=== PATIENT | female | born 1930 | race Caucasian/White ===

== ENCOUNTER 2016-07-12 15:42 | Inpatient (IN) | payer MEDICARE, OTHER ==
[~2016-07-12] VITALS: Ht 167.6 cm; Wt 61.1 kg
[2016-07-12] MEDS ORDERED: LEVO75TA4 PO (15:50)
[2016-07-12] MEDS ORDERED: ASPI-973 PO (15:50)
[2016-07-12] MEDS ORDERED: LOSA50TA37 PO (15:50)
[2016-07-12] MEDS ORDERED: CARV25TA2 PO (15:50)
[2016-07-12] MEDS ORDERED: MULT-1073 PO (15:50)
[2016-07-12 15:51] VITALS: BP 135/45; PULSE 88; RESP 26; O2SAT 94
[2016-07-12] MEDS ORDERED: Albuterol-Ipratropium 3 mL Inhalation Solution NEB ONE (16:00)
--- NOTE | 2016-07-12 16:07 | ED.REPORT ---
HPI-General Illness Date of Service Jul 12, 2016 ED Provider: Oliver Wright DO Sara Huddleston is an 86 year old woman with a PMH of Asthma, CHF with previously diagnosed dilated cardiomyopathy, BL cataracts, HTN, and hypothyroidism who presents with a 1 day history of increasing SOB. She states this feeling is similar to asthma exacerbations she has had in the past, she has never an steroid burst or taper as far as she is aware. She further endorses a recent cough productive of sputum which she has not examined for color or odor. She further expresses concern for new onset BL LE edema. She denies chest pain, ORTEGA, pain with deep inspiration, recent immobility, pain in her legs or calves, or palpitations. Nursing Notes Stated Complaint: DIFFICULTY BREATHING Chief Complaint: Respiratory Complaints Nursing Notes Reviewed: Yes Allergies: Coded Allergies: codeine (Verified Adverse Reaction, Severe, Nausea,Vomiting, 07/12/16) Scheduled Aspirin (Aspirin) 81 Mg Tablet 81 MG PO DAILY Carvedilol (Carvedilol) 25 Mg Tablet 25 MG PO BID Levothyroxine (Levothyroxine) 75 Mcg Tablet 75 MCG PO QAM Losartan Potassium (Losartan Potassium) 50 Mg Tablet 50 MG PO DAILY Mometasone/Formoterol (Dulera 100 Mcg/5 Mcg Inhaler) 13 Gm Hfa.aer.ad 2 PUFFS IH BID Multivits-Min/FA/Lycopene/Lut (Centrum Silver Tablet) 1 Each Tablet 1 EACH PO DAILY Scheduled PRN Fluticasone Propionate (Flonase Allergy Relief) 50 Mcg/Actuation [place].susp 1-2 ML NS DAILY PRN PRN RHINITIS General Time Seen by MD: 15:50 Chief Complaint Breathing problem Hx Obtained From: Patient Sudden in Onset?: No Onset Occurred: 2 days ago Symptom Duration: Since onset Severity: Current: No pain currently Severity: Maximum: No pain Recent Healthcare: No recent doctor visit Similar Sx Previous: Yes Past Medical History Past Medical History Hypothyroidism Reports: Asthma, Congestive heart failure, Hypertension Review of Systems Full Review of Systems Respiratory: Reports: Prod cough, yellow, Shortness of breath, Wheezing Cardiovascular: Reports: Edema Complete sys rev & neg: except as marked. Physical Exam Gen: A/O x3 pleasant cooperative ago woman appearing younger than stated age, mild acute distress secondary to SOB Neck: Supple, Full ROM, no JVD HEENT: PERRL, EOMI, mucous membranes slightly dry, no scleral icterus, no conjunctival pallor CV: RRR, soft systolic murmur best heard at right sternal border, mild diastolic murmur best heard in the axilla Resp: Diffuse expiratory wheezing which does not clear with cough, No rales or rhonchi Extr: Mild BL non-pitting LE edema, no cyanosis or clubbing Neuro: CN 2-12 grossly intact, no focal neurologic deficit. Vital Signs Vital Signs Date Time Temp Pulse Resp B/P Pulse Ox O2 Delivery O2 Flow Rate FiO2 07/12/16 17:43 82 24 136/48 92 Nasal Cannula 2 07/12/16 16:18 75 20 98 Room Air 07/12/16 15:51 37.0 88 26 135/45 94 Room Air Initial VS: Reviewed, Vital signs abnormal (Mild Tachypnea and Hypotension) Interpretation & Diagnostics Lab Results Interpretation Result Diagram: 07/12/16 1615 07/12/16 1615 Test 07/12/16 16:15 White Blood Count 5.5th/mm3 (3.8-10.1) Red Blood Count 3.86mil/mm3 (3.90-5.20) Hemoglobin 11.7g/dL (12.0-15.6) Hematocrit 36.4% (35.0-46.0) Mean Corpuscular Volume 94.3fL (81-100) Mean Corpuscular Hemoglobin 30.3pg (27.0-35.0) Mean Corpuscular Hemoglobin Concent 32.1% (32.0-37.0) Red Cell Distribution Width 13.6% (12.3-15.4) Platelet Count 249bil/L (150-400) Neutrophils (%) (Auto) 73.7% (40-74) Lymphocytes (%) (Auto) 14.7% (14-46) Monocytes (%) (Auto) 10.0% (4-12) Eosinophils (%) (Auto) 1.1% (0-5) Basophils (%) (Auto) 0.5% (0-3) Sodium Level 125mEq/L (134-144) Potassium Level 4.6mEq/L (3.5-5.2) Chloride Level 90mEq/L (97-108) Carbon Dioxide Level 22mmol/L (18-29) Blood Urea Nitrogen 12mg/dL (8-27) Creatinine 0.79mg/dL (0.57-1.00) Estimat Glomerular Filtration Rate 99mL/min (>59) Glucose Level 105mg/dL (60-99) Calcium Level 8.5mg/dL (8.5-10.1) Total Bilirubin 0.4mg/dL (0.0-1.2) Aspartate Amino Transf (AST/SGOT) 30U/L (0-50) Alanine Aminotransferase (ALT/SGPT) 14U/L (0-32) Alkaline Phosphatase 62U/L (25-165) Troponin T < 0.010ug/L (0.0-0.011) Pro-B-Type Natriuretic Peptide 1633pg/mL (0-738) Total Protein 8.0g/dL (6.4-8.4) Albumin 3.4g/dL (3.4-5.0) ECG Interpretation Interpreted by: ED physician Normal ECG Interpretation: No acute ischemic changes, Normal intervals, No change from prior ECGs, Adequate tracing Abnormal Rate: Rate (80) Rhythm / Conduction: Ectopic beats - PVC's, RBBB - complete Re-Eval/Medical Decision Med Decision/Clinical Course This is a patient with multiple possibly overlapping etiologies for her SOB whose last ECHO in November 2013 indicated mildly dilated CHF with EF 35-45% and multi-valvular pathology. Laboratory exam, clinical evaluation, and imaging consistent with acute on chronic CHF exacerbation. The patient is also acute hyponatremic and hypochloremic, so she was started on NS @ 100mls/hr for electrolyte replacement and concurrent Lasix to encourage diuresis of free water to improve peripheral and central edema. Given overall clinical picture and concurrent co-morbid conditions, we believe the patient would benefit from further cardiovascular evaluation Counseled Regarding: Diagnosis, Lab results, Need for follow-up, Need for admission Discharge & Departure Shift Change Sign-Out Patient Care Transferred: No Discussed Complaint(s): Yes Laboratory Evaluation: Lab evaluation discussed Imaging Studies: Imaging discussed Response to Therapy: Improved Primary Impression: Asthma Asthma severity: moderate persistent Asthma complication type: with acute exacerbation Qualified Code: J45.41 - Moderate persistent asthma with (acute) exacerbation Additional Impression: CHF (congestive heart failure) Congestive heart failure type: unspecified congestive heart failure type Congestive heart failure chronicity: unspecified congestive heart failure chronicity Qualified Code: I50.9 - Heart failure, unspecified Disposition: ADMITTED TO HOSPITAL Discharge Condition All VS Reviewed: Yes Condition: Stable Referrals: Quique Caruso MD (PCP) CARDIOLOGY,REHAN REYNOSO (Family) Attending Statement The patient was seen and examined together with Dr. Ramon on 07/12/16 and I have added additional information to the note above. copies to: Quique Caruso MD, David E DO Jul 12, 2016 16:07 Oliver Wright DO Jul 12, 2016 17:49
[2016-07-12] MEDS ORDERED: Albuterol 2.5 mg/3 mL Inhalation Solution NEB ONE (16:10)
[2016-07-12] MEDS ORDERED: MethylprednisoLONE Sodium Succinate 40 mg/mL Inj IVPUSH ONE (16:10)
[2016-07-12 16:18] VITALS: PULSE 75; RESP 20; O2SAT 98
[2016-07-12 16:21] LABS: BASOPHILS % (AUTO) 0.5 % (0-3); EOSINOPHILS % (AUTO) 1.1 % (0-5); Mean Corpuscular Hemoglobin 30.3 pg (27.0-35.0); Mean Corpuscular Volume 94.3 fL (81-100); NEUTROPHILS % (AUTO) 73.7 % (40-74); Platelet Count 249 bil/L (150-400)
[2016-07-12 16:53] LABS: TROPONIN T < 0.010 ug/L (0.0-0.011)
[2016-07-12] MEDS ORDERED: Furosemide 10 mg/mL 4 mL Inj IVPUSH ONE (17:20)
[2016-07-12] MEDS ORDERED: 0.9% Sodium Chloride 1,000 ML IV SCH ×2 (17:20→17:38)
[2016-07-12] MEDS ORDERED: MOME13HF2 IH (17:32)
[2016-07-12] MEDS ORDERED: FLUT9.9S NS (17:32)
[2016-07-12] MEDS ORDERED: Alum-Mag Hydrox-Simeth 30 mL Suspension PO PRN ×2 (17:40→17:45)
[2016-07-12] MEDS ORDERED: Ondansetron 2 mg/mL 2 mL Inj IVPUSH PRN ×2 (17:40→17:45)
[2016-07-12 17:43] VITALS: BP 136/48; PULSE 82; RESP 24; O2SAT 92
[2016-07-12] MEDS ORDERED: Fluticasone 0.05% 15 Spray/2 Gm 16 Gm Nasal Spray NASAL PRN (17:50)
--- NOTE | 2016-07-12 18:00 | PCM.HPMED ---
Subjective Date of Service Jul 12, 2016 Primary Provider: Admitting Physician: Primary Care Physician: Quique Caruso MD Attending Physician: History of Present Illness: cc: Short of breath HISTORY was OBTAINED FROM PATIENT / [employer] NOTES History of present illness 86-year-old female presents with 2-3 days of shortness of breath, productive cough, with wheezing. New onset bilateral lower extremity edema for 1 day. No chest pressure, not immobile, palpitations. poor appetite. drinks at least4+ glasses of tea/coffee daily. home inhalers have not been helpful. no orthopnea. no sore throat. no body aches. She visited family w/ pneumonia who is hospitalized. In the ER vital signs stable on room air, DuoNeb's, normal saline, Lasix, Solu- Medrol Review of Systems - none of the following - F/C/ DIAZ / lightheaded / dizziness / acid reflux / n/v/diarrhea / bleeding/bruising / change in voiding / yeast infections / rash ambulates sneezing fits FAMILY HX CAD ovarian cancer SOCIAL HX quit smoking in her 50s MEDICATIONS Aspirin (Aspirin) 81 Mg Tablet 81 MG PO DAILY Carvedilol (Carvedilol) 25 Mg Tablet 25 MG PO BID Levothyroxine (Levothyroxine) 75 Mcg Tablet 75 MCG PO QAM Losartan Potassium (Losartan Potassium) 50 Mg Tablet 50 MG PO DAILY Mometasone/Formoterol (Dulera 100 Mcg/5 Mcg Inhaler) 13 Gm Hfa.aer.ad 2 PUFFS IH BID Multivits-Min/FA/Lycopene/Lut (Centrum Silver Tablet) 1 Each Tablet 1 EACH PO DAILY Scheduled PRN Fluticasone Propionate (Flonase Allergy Relief) 50 Mcg/Actuation [place].susp 1-2 ML NS DAILY PRN PRN RHINITIS Past Medical/Surgical HX Asthma BL cataracts, hypothyroidism CAD / [place] in her 50s medically managed / hypertension / dilated cardiomyopathy, echo 2013 Mildly dilated left ventricle EF45% Apical inferior wall and apical lateral wall are moderate hypokinesis. Mildly dilated right ventricle. Severely dilated left atrium. Mild aortic sclerosis. Mild aortic regurgitation. Mild mitral annular calcification. Moderate mitral regurgitation, eccentrically directed posteriorly. Small aneurysm of the abdominal aorta 3.7 cm X 3.7 cm. Comparison is made with the echocardiogram of 11/15/11, there has been no significant change. 2014 normal Treadmill stress RBBB, performed for dyspnea Allergies Coded Allergies: codeine (Verified Adverse Reaction, Severe, Nausea,Vomiting, 07/12/16) PMH Social History Hx Alcohol Use: No Hx Substance Use: No Exam Vital Signs Vital Sign - Last Date Time Temp Pulse Resp B/P Pulse Ox O2 Delivery O2 Flow Rate FiO2 07/12/16 17:43 82 24 136/48 92 Nasal Cannula 2 07/12/16 15:51 37.0 Lab and Diagnostics Labs Exam on admission 2-3L NC NAD A and O x 3 mood affect WNL NC/AT EOMI PERRL / sunglasses/ no pharyngeal lesions/ no oral lesions / hearing intact Supple neck bilateral diminished CTAB equal chest rise / no accessory muscle use / speaks in full sentences / NO wheezing currently RRR S1 S2 / no mrg / 2+ radial pulses Soft nt nd + BS no hepatosplenomegaly 1+ edema bilateral dependent distal legs and ankles // no cyanosis no ecchymosis of lower extremities No rash / no jaundice JOHNSON symmetrical facies EKG RBBB LAFB, PVC, sinus rhythm 80 QTc Prilosec Trop pending BNP 1633 UA pending LFT normal Imaging CXR PROCEDURE: X-RAY CHEST, TWO VIEWS ([id number]) INDICATIONS: SOB TECHNIQUE: 2 views of the chest were acquired. COMPARISON: [facility], , CHEST 1VW (PORTABLE), 09/09/2010, 0:41. FINDINGS: Surgical changes and devices: None. Lungs and pleura: There is mild increased pulmonary vascularity. There is slight appearance of streaky opacities within the right base. Mediastinum: Mediastinal contours are normal. Heart size is normal. Bones and chest wall: No suspicious bony abnormalities. Soft tissues appear unremarkable. IMPRESSION: Increased pulmonary vascularity suggestive of edema. Streaky opacities are present in the right base. This could be retail service representative of evolving pneumonia, focal edema and/or atelectasis. Result Diagram: 07/12/16 1615 07/12/16 1615 Assessment & Plan Active issues and reason for admission Respiratory failure due to Acute systolic CHF, contributory asthma, afebrile w/ o leukocytosis -- DuoNeb, prednisone, hold home inhaled steroid, pending sputum cx -- Pending influenza/sputum culture/urine strep/procalcitonin, hold antibiotics for now since well appearing, though sick contact was hospitalized for pna -- diuresis, Lasix 40 daily, I and O, daily weight, no urine had been collected prior to Lasix in ER, s/p 400cc UOP post ER -- Continue Coreg, -- Pending echo Hyponatremia, likely due to hypovolemia -- Last sodium 136 in 2007 -- Hold losartan while diuresing -- Lasix, serial sodium, fluid restriction 1.5 L -- UA pending Chronic issues known prior to admission, present on admission Asthma moderate persistent BL cataracts, hypothyroidism 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 Mild aortic regurgitation. Moderate mitral regurgitation. Small AAA 3.7 cm X 3.7 cm, unchanged from 2011 to 2013 2014 normal Treadmill stress RBBB, performed for dyspnea Diet cardiac DVT prophylaxis lovenox scd ambulate Code full Disposition inpatient Assessment and plan were discussed with patient August Bianchi MD Jul 12, 2016 18:00 Result Diagram: 07/12/16 1615 07/12/16 1615 August Bianchi MD Jul 12, 2016 18:00
--- NOTE | 2016-07-12 18:01 | DRSVH ---
PROCEDURE: X-RAY CHEST, TWO VIEWS ([id number]) INDICATIONS: SOB TECHNIQUE: 2 views of the chest were acquired. COMPARISON: [facility], , CHEST 1VW (PORTABLE), 09/09/2010, 0:41. FINDINGS: Surgical changes and devices: None. Lungs and pleura: There is mild increased pulmonary vascularity. There is slight appearance of streak y opacities within the right base. Mediastinum: Mediastinal contours are normal. Heart size is normal. Bones and chest wall: No suspicious bony abnormalities. Soft tissues appear unremarkable. IMPRESSION: Increased pulmonary vascularity suggestive of edema. Streaky opacities are present in the right base. This could be exhibit display representative of evolving pneumonia, focal edema and/or atelectasis. Dictated by: Hanna Soares M.D. on 07/12/2016 at 17:59 Approved by: Hanna Soares M.D. on 07/12/2016 at 18:00
[2016-07-12 19:05] VITALS: BP 136/48; PULSE 82; RESP 24; O2SAT 92
[2016-07-12 19:10] LABS: APPEARANCE,URINE CLEAR (CLEAR,HAZY); COLOR,URINE YELLOW (YELLOW); OCCULT BLOOD,URINE TRACE (NEGATIVE); PH,URINE 5.5 (5.0-8.0); UROBILINOGEN,URINE NORMAL (NORMAL)
[2016-07-12 19:41] VITALS: BP 123/65; PULSE 85; RESP 18; O2SAT 94
[2016-07-12 20:29] VITALS: PULSE 90
[2016-07-12] MEDS: Albuterol-Ipratropium 3 mL Inhalation Solution NEB SCH (20:30)
[2016-07-12] MEDS: Fluticasone-Salmeterol 100-50 Inhaler INHALATION SCH (20:35)
[2016-07-12 20:52] LABS: INR 0.98 ratio
[2016-07-12 21:10] LABS: TROPONIN T < 0.010 ug/L (0.0-0.011)
[2016-07-12 21:19] LABS: Magnesium 1.7 mg/dL (1.6-2.6)
--- NOTE | 2016-07-12 22:00 | NUR ---
ADMIT NOTE Pt arrived to [facility] [place] [facility] 3021 approx 193. VS obtained. Pt on 3L. Pt states she feels more comfortable and less dyspneic at this time. Pts IV saline locked per MD orders. Pt placed on remote telemetry, crane service technician notified. Pt voided, urine sample sent to lab. Influenza swab obtained, pt tested positive for Influenza B. notified, rec'd orders and administered 1st dose of tamiflu. Specimen cup at bedside, pt aware that sputum sample is needed. Pt denies any pain. Evening medications administered. Continue to monitor. Pt placed on droplet precautions. Call light in reach. Intentional rounding.
[2016-07-13] VITALS (9 sets, daily range): BP systolic 93–139; BP diastolic 54–65; PULSE 72–85; RESP 18–24; O2SAT 93–95
[2016-07-13] MEDS: Sodium Chloride LOK Flush 10 mL Syringe IVFLUSH SCH ×3 (01:10→16:30)
[2016-07-13] MEDS: Albuterol-Ipratropium 3 mL Inhalation Solution NEB SCH ×4 (02:30→20:30)
[2016-07-13 07:23] LABS: BASOPHILS % (AUTO) 0 % (0-3); EOSINOPHILS % (AUTO) 0 % (0-5); MONOCYTES % (AUTO) 6.1 % (4-12); Mean Corpuscular Hemoglobin 30.3 pg (27.0-35.0); Mean Corpuscular Volume 92.8 fL (81-100); NEUTROPHILS % (AUTO) 81.1 % (40-74); Platelet Count 232 bil/L (150-400)
[2016-07-13 07:57] LABS: Phosphorus 4.8 mg/dL (2.5-4.9)
[2016-07-13 07:59] LABS: TROPONIN T < 0.010 ug/L (0.0-0.011)
[2016-07-13 08:11] LABS: Free Thyroxine Index 2.5 (1.2-4.9); Thyroxine (T4) 8.1 ug/dL (4.5-12.0)
[2016-07-13] MEDS ORDERED: Furosemide 10 mg/mL 4 mL Inj IVPUSH SCH (08:30)
[2016-07-13] MEDS: predniSONE 20 mg Tablet PO SCH (08:56)
[2016-07-13] MEDS: Fluticasone-Salmeterol 100-50 Inhaler INHALATION SCH ×2 (08:57→20:02)
--- NOTE | 2016-07-13 13:11 | DRSVH ---
[facility] [address] [place] [address] Echocardiogram Report Name: KOBY GALINDO MStudy Date: 07/13/2016 Height: 6 6 in Hospital [facility] Weight: 1 39 lb Gender: Female BSA: 1.7 m2 : 1930 Age: 86 yrs BP: 93/54 mmHg Reason For Study: Congestive Heart Failure Ordering Physician: [facility] Performed By: Dianne Holden Referring Physician: Dr. Quique Caruso Interpretation Summary The left ventricle is normal in size. Left ventricular systolic function is mildly reduced. The ejection fraction is estimated to be 45-50%. There has been no significant change since the previous study. There is a significant dyssynchronous contraction pattern, consistent with a conduction abnormality. Assessment of diastolic parameters indicates a relaxation abnormality of the left ventricle, consistent with normal filling pressures. The right ventricle is mildly dilated. The right ventricular systolic function is normal. The right ventricular systolic pressure is estimated at least 23 mmHg assuming a right atrial pressure of 3 mm Hg. Right atrial size is normal. There is mild mitral valve prolapse. The mitral regurgitant jet is eccentrically directed. There is mild mitral regurgitation. MR has slightly decreased since prior study. There is mild aortic regurgitation. AR has been stable since prior study. The aortic root is normal size. At least moderate atherosclerosis in the abdominal aorta. Procedure: A two-dimensional transthoracic echocardiogram with color flow and Doppler was performed. The study quality was technically adequate. Comparison is made with the echocardiogram of 11/22/2013. The patient was in normal sinus rhythm during the exam. The patient had a bundle branch block rhythm during the exam. Left Ventricle: The left ventricle is normal in size. There is normal left ventricular wall thickness. Left ventricular systolic function is mildly reduced. The ejection fraction is estimated to be 45-50%. There has been no significant change since the previous study. There is a significant dyssynchronous contraction pattern, consistent with a conduction abnormality. Assessment of diastolic parameters indicates a relaxation abnormality of the left ventricle, consistent with normal filling pressures. Right Ventricle: The right ventricle is mildly dilated. The right ventricular systolic function is normal. Atria: The left atrium is moderately dilated. Right atrial size is normal. There is no Doppler evidence for an interatrial shunt. Mitral Valve: There is mild mitral annular calcification. There is mild mitral valve prolapse. The mitral regurgitant jet is eccentrically directed. There is mild mitral regurgitation. Aortic Valve: The aortic valve is trileaflet. There is no aortic valve stenosis. There is mild aortic regurgitation. Tricuspid Valve: The tricuspid valve is not well visualized, but is grossly normal. There is a trace or physiologic amount of tricuspid regurgitation. The right ventricular systolic pressure is estimated at least 23 mmHg assuming a right atrial pressure of 3 mm Hg. Pulmonic Valve: The pulmonic valve is not well visualized. Great Vessels: The aortic root is normal size. The ascending aorta is normal in size. The aortic arch could not be visualized. The IVC is of normal diameter and collapses greater than 50% with a sniff. This suggests a low right atrial pressure of 3 mm Hg. Pericardium/ Pleura There is no pericardial effusion. MMode/2D Measurements & Calculations LVIDd: 5.6 cm RA long axis LVOT diam LVIDs: 3.5 cm LA A2 area: 21.1 cm FS: 36.4 % LA A4 area: 27.7 cm RA area Ao root diam EPSS: 0.76 cm LA length (vol): 5.8 cm IVSd: 0.79 cm LA vol: 85.1 ml : 15.6 cm Aortic Jxn LVPWd: 0.84 cm LA vol index RA vol: 42.2 ml RA asc Aorta : 24.6 mm2 Diam: 2.8 cm IVC diam: 1.6 cm LV meza. diameter/BSA LV sys. diameter/BSA RVD1 (basal) (cm/m^2): 3.2 (cm/m^2): 2.1 Doppler Measurements & Calculations Ao V2 max MV E max raffi MV E/A: 0.64 TR max raffi : 147.7 cm/sec : 56.6 cm/sec Med Peak E' Raffi : 225.3 cm/sec Ao max P.7 mmHgMV A max raffi TR max PG Ao mean PG : 88.5 cm/sec E/E' med: 11.2 : 20.3 mmHg MV P1/2t: 45.5 msec Lat Peak E' Raffi PA V2 max LVOT Max Raffi : 66.7 cm/sec : 97.2 cm/sec E/E' lat: 7.8 PA mean PG E/e' average: 9.5 : 0.76 mmHg BOO(I,D): 1.7 cm MV A dur: 0.15 secPA Accel Time sev ratio: 0.59 : 0.11 sec AI P1/2t : 450.4 msec AI dec slope : 241.1 cm/s2c MV dec time MV P1/2t max raffi Ao V2 mean LV V1 max PG : 0.14 sec : 108.4 cm/sec MVA(P1/2t): 4.8 cm2 Ao V2 VTI: 31.2 cmLV V1 VTI BOO(V,D): 1.9 cm2 : 18.5 cm PA V2 mean BOO indexed to BSA : 40.5 cm/sec (cm^2/m^2): 1.0 Reading Physician:PM
--- NOTE | 2016-07-13 15:30 | NUR ---
Social Work-initial assessment: Data:See initial assessment. Pt is a 86 y/o female who was admitted on 07/12/16 for CHF exacerbation per H&P. Pt's insurance is [employer] and PCP is Quique Caruso MD. EMR reviewed. SW met with pt at bedside to discuss discharge planning, SW role explained. Pt's readmission score is 2. Pt is alert and oriented x3. Pt resides at home with her Quique in a single level home where she remains independent with ADLS. Pt does not use any DME and does not drive. Pt has no HH or SNF history Pt has no watermaster care or VA benefits. SW discussed DPOA/ advanced directive discussed, pt states she has completed this, SW encouraged a copy to be brought into the hospital. Pt feels like she has enough help at home. Pt states her family will provide transport home at discharge. SW provided phone number and plan on white board in room. Per RN notes, pt has been up independent in her room. No anticipated discharge needs. SW will continue to follow if needs arise. Assessment:Pt who is independent at baseline. Plan:Pt to discharge home when medically stable via POV. No anticipated discharge needs. SW will continue to follow if needs arise. JUANA Mackey Addendum: 07/13/16 at 1536 by FRANCISCA OWEN SS Amended: Links added.
--- NOTE | 2016-07-13 16:57 | PCM.PNMED ---
Subjective Date of Service Jul 13, 2016 Subjective reports breathing significantly improved. continues to have cough and SOB Exam Vital Signs Vital Sign - Last Date Time Temp Pulse Resp B/P Pulse Ox O2 Delivery O2 Flow Rate FiO2 07/13/16 13:23 36.7 76 22 118/61 95 Nasal Cannula 2.50 Intake and Output 07/12/16 07/12/16 07/13/16 Cumulative From/Thru 15:00 23:00 07:00 07/12/16 15:51 - 07/13/16 05:43 Intake Total 1238 ml 1238 ml Balance 1238 ml 1238 ml IV Total 1238 ml 1238 ml General: Alert, Cooperative, No Acute Distress Head: Normal Eyes: Scleral Anicteric Nose: Mucous Membr Moist/[place] Mouth: Mucous Membr Moist/[place] Neck: Supple Chest & Lungs: Chest Wall Normal, Expiratory wheezes (mild bilat), Other (no signficant crackle) Cardiovascular: Regular Rate/Rhythm Abdomen: Non-tender, Non-distended, Normoactive bowel tones, Soft Extremities: No cyanosis/clubbing/edma bilat Neurological: Grossly Neurologically Intact, Normal Speech IVs and Medications Medications Reviewed: Medications were reviewed in detail Lab and Diagnostics Result Diagram: 07/13/16 0625 07/13/16 0625 X-Rays, CTs and MRIs Date of Service: 07/12/16 3557 PROCEDURE: X-RAY CHEST, TWO VIEWS ([id number]) IMPRESSION: Increased pulmonary vascularity suggestive of edema. Streaky opacities are present in the right base. This could be promotions representative of evolving pneumonia, focal edema and/or atelectasis. Dictated by: Hanna Soares M.D. on 07/12/2016 at 17:59 Approved by: Hanna Soares M.D. on 07/12/2016 at 18:00 Cardiac Echo Impressions Date of Service: 07/13/16 5981 Echocardiogram Report Interpretation Summary The left ventricle is normal in size. Left ventricular systolic function is mildly reduced. The ejection fraction is estimated to be 45-50%. There has been no significant change since the previous study. There is a significant dyssynchronous contraction pattern, consistent with a conduction abnormality. Assessment of diastolic parameters indicates a relaxation abnormality of the left ventricle, consistent with normal filling pressures. The right ventricle is mildly dilated. The right ventricular systolic function is normal. The right ventricular systolic pressure is estimated at least 23 mmHg assuming a right atrial pressure of 3 mm Hg. Right atrial size is normal. There is mild mitral valve prolapse. The mitral regurgitant jet is eccentrically directed. There is mild mitral regurgitation. MR has slightly decreased since prior study. There is mild aortic regurgitation. AR has been stable since prior study. The aortic root is normal size. At least moderate atherosclerosis in the abdominal aorta. Reading Physician:PM Assessment & Plan 86-year-old female with history of Asthma, hypothyroidism, CAD / [place] in her 50s medically managed / hypertension presents with 2-3 days of shortness of breath, productive cough, with wheezing. # Acute respiratory distress and shortness of breath likely combination of acute asthma exacerbation +/- acute mild diastolic heart failure and brought on by acute Influenza B infection. present on admission. improving afebrile w/o leukocytosis - further management as noted below # Acute Influenza B, poa. - c/w Tamiflu x 5 days - c/w supportive care # Acute asthma exacerbation, poa. improving - c/w short course of Prednisone - c/w neb treatment # Possible acute mild diastolic heart failure - Echocardiogram with EF 45-50% - clinically appears fairly euvolemic today - hold further Lasix for now - f/u daily I/O # Acute Hyponatremia, present on admission. improving - c/w fluid restriction 1.5 L - f/u daily BMP # Chronic hypothyroidism. presumed stable - c/w home dose Synthroid # CAD/[place]/hypertension/sCHF-dilated cardiomyopathy per prior reports. stable - c/w home dose Carvedilol - Hold home dose Losartan until BP more stable # Small AAA 3.7 cm X 3.7 cm, unchanged from 2011 to 2013 - further f/u as outpatient Dispo: 1-2 days Time spent 35 min Steven Rodriguez Jul 13, 2016 16:57 Steven Rodriguez Jul 13, 2016 16:57
--- NOTE | 2016-07-13 18:44 | NUR ---
Uneventful Pt ambulated throughput the day in room, steady gait, denies SOB, on 2.5L NC. No c/o of pain or discomfort. Pt reported feeling better, and breathing better. Pt currently resting in bed with call light within reach, bed low and locked, intentional rounding.
[2016-07-14] VITALS (8 sets, daily range): BP systolic 113–136; BP diastolic 56–74; PULSE 72–85; RESP 18–24; O2SAT 92–95
[2016-07-14] MEDS: Albuterol-Ipratropium 3 mL Inhalation Solution NEB SCH ×4 (02:30→20:56)
[2016-07-14] MEDS: Sodium Chloride LOK Flush 10 mL Syringe IVFLUSH SCH ×3 (05:43→16:51)
--- NOTE | 2016-07-14 06:02 | NUR ---
Uneventful shift Pt has had no complaints all night, continues with minimal cough, reports feeling significantly better than the previous night. No fevers over night.
[2016-07-14] MEDS: Fluticasone-Salmeterol 100-50 Inhaler INHALATION SCH ×2 (07:28→20:39)
[2016-07-14] MEDS: predniSONE 20 mg Tablet PO SCH (07:29)
[2016-07-14 08:25] LABS: Mean Corpuscular Hemoglobin 30.4 pg (27.0-35.0); Mean Corpuscular Volume 93.9 fL (81-100)
--- NOTE | 2016-07-14 14:29 | NUR ---
spiritual care: pt request conversational visit. pt reflective about her cristian, [employer] membership and family. Pt described her eyesight limitations and coping as she anticipates cataract surgery. no specific spiritual care needs noted. pt enjoyed companionable visit.
--- NOTE | 2016-07-14 14:34 | NUR ---
Evaluation completed. Please go to "Notes" then click on "Assessments and Notes" (bottom left corner of screen). Then select appropriate discipline tab on top of screen.
--- NOTE | 2016-07-14 15:07 | PCM.PNMED ---
Subjective Date of Service Jul 14, 2016 Subjective continues to have cough and some SOB Exam Vital Signs Vital Sign - Last Date Time Temp Pulse Resp B/P Pulse Ox O2 Delivery O2 Flow Rate FiO2 07/14/16 13:08 36.4 85 18 127/74 Nasal Cannula 2.50 07/14/16 08:59 93 Intake and Output 07/13/16 07/13/16 07/14/16 Cumulative From/Thru 15:00 23:00 07:00 07/12/16 15:51 - 07/14/16 06:20 Intake Total 500 ml 800 ml 200 ml 2738 ml Output Total 950 ml 725 ml 850 ml 2525 ml Balance -450 ml 75 ml -650 ml 213 ml Intake Oral 500 ml 800 ml 200 ml 1500 ml IV Total 1238 ml Output Urine Total 950 ml 725 ml 850 ml 2525 ml # Bowel Movements 0 1 1 Exam General: Alert, Cooperative, No Acute Distress Head: Normal Eyes: Scleral Anicteric Nose: Mucous Membr Moist/[place] Mouth: Mucous Membr Moist/[place] Neck: Supple Chest & Lungs: Chest Wall Normal, Expiratory wheezes (mild bilat), Other (no significant crackle) Cardiovascular: Regular Rate/Rhythm Abdomen: Non-tender, Non-distended, Normoactive bowel tones, Soft Extremities: No cyanosis/clubbing/edema bilat Neurological: Grossly Neurologically Intact, Normal Speech IVs and Medications Medications Reviewed: Medications were reviewed in detail Lab and Diagnostics Result Diagram: 07/14/16 0715 07/14/16 0715 X-Rays, CTs and MRIs Date of Service: 07/12/16 0062 PROCEDURE: X-RAY CHEST, TWO VIEWS ([id number]) IMPRESSION: Increased pulmonary vascularity suggestive of edema. Streaky opacities are present in the right base. This could be fundraising sale representative of evolving pneumonia, focal edema and/or atelectasis. Dictated by: Hanna Soares M.D. on 07/12/2016 at 17:59 Approved by: Hanna Soares M.D. on 07/12/2016 at 18:00 Cardiac Echo Impressions Date of Service: 07/13/16 6642 Echocardiogram Report Interpretation Summary The left ventricle is normal in size. Left ventricular systolic function is mildly reduced. The ejection fraction is estimated to be 45-50%. There has been no significant change since the previous study. There is a significant dyssynchronous contraction pattern, consistent with a conduction abnormality. Assessment of diastolic parameters indicates a relaxation abnormality of the left ventricle, consistent with normal filling pressures. The right ventricle is mildly dilated. The right ventricular systolic function is normal. The right ventricular systolic pressure is estimated at least 23 mmHg assuming a right atrial pressure of 3 mm Hg. Right atrial size is normal. There is mild mitral valve prolapse. The mitral regurgitant jet is eccentrically directed. There is mild mitral regurgitation. MR has slightly decreased since prior study. There is mild aortic regurgitation. AR has been stable since prior study. The aortic root is normal size. At least moderate atherosclerosis in the abdominal aorta. Reading Physician:PM Assessment & Plan 86-year-old female with history of Asthma, hypothyroidism, CAD / [place] in her 50s medically managed / hypertension presents with 2-3 days of shortness of breath, productive cough, with wheezing. # Acute respiratory distress and shortness of breath likely combination of acute asthma exacerbation +/- acute mild diastolic heart failure and brought on by acute Influenza B infection. present on admission. improving afebrile w/o leukocytosis - further management as noted below - titrate off of supplemental O2 # Acute Influenza B, poa. - c/w Tamiflu x 5 days - c/w supportive care # Acute asthma exacerbation, poa. improving - c/w short course of Prednisone - c/w neb treatment # Possible acute mild diastolic heart failure - Echocardiogram with EF 45-50% - clinically appears fairly euvolemic - hold further Lasix for now - f/u daily I/O # Acute Hyponatremia, present on admission. improving - c/w fluid restriction 1.5 L - f/u daily BMP # Chronic hypothyroidism. presumed stable - c/w home dose Synthroid # CAD/CT/hypertension/sCHF-dilated cardiomyopathy per prior reports. 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
--- NOTE | 2016-07-14 16:51 | NUR ---
room air pt has been on room air for 2hours, SATS 90-92% while talking
[2016-07-15] VITALS (15 sets, daily range): BP systolic 94–133; BP diastolic 45–64; PULSE 67–100; RESP 16–23; O2SAT 87–94
[2016-07-15] MEDS: Sodium Chloride LOK Flush 10 mL Syringe IVFLUSH SCH ×3 (00:33→16:30)
[2016-07-15] MEDS: Albuterol-Ipratropium 3 mL Inhalation Solution NEB SCH ×4 (03:20→19:31)
--- NOTE | 2016-07-15 04:27 | NUR ---
OXYGEN NEEDS During mid of night, VS obtained. Pt unable to reach oxygen saturation >90% on RA. Pt 87-89% on RA. Pt is having c/o dyspnea, even at rest. Pt placed back on oxygen via nasal cannula @ 2L. Continue to monitor. Call light in reach. Intentional rounding.
[2016-07-15] MEDS: predniSONE 20 mg Tablet PO SCH (08:17)
[2016-07-15] MEDS: Fluticasone-Salmeterol 100-50 Inhaler INHALATION SCH ×2 (08:18→20:04)
--- NOTE | 2016-07-15 14:14 | NUR ---
Social Work: Readiness for d/c Pt is on day 3 of hospitalization. EMR reviewed. T[employer] NETWORK ANALYST met with pt regarding HH, pt declined HH at this time stating she does not need it. Pt discussed in rounds. MD states pt likely ready for d/c tomorrow if they can taper down her O2 needs. T[employer] NETWORK ANALYST will continue to follow. Assessment: Pt who is independent at baseline. Plan: Pt will d/c home via POV when medically stable, likely tomorrow. MD states pt likely ready for d/c tomorrow if they can taper down her O2 needs. T[employer] NETWORK ANALYST will continue to follow. JUANA Ramos
--- NOTE | 2016-07-15 14:39 | PCM.PNMED ---
Subjective Date of Service Jul 15, 2016 Subjective continues to have cough and some SOB Exam Vital Signs Vital Sign - Last Date Time Temp Pulse Resp B/P Pulse Ox O2 Delivery O2 Flow Rate FiO2 07/15/16 13:53 85 20 92 Nasal Cannula 1.50 07/15/16 12:53 36.8 94/47 Intake and Output 07/14/16 07/14/16 07/15/16 Cumulative From/Thru 15:00 23:00 07:00 07/12/16 15:51 - 07/15/16 06:38 Intake Total 700 ml 300 ml 3738 ml Output Total 500 ml 250 ml 3275 ml Balance 200 ml 50 ml 463 ml Intake Oral 700 ml 300 ml 2500 ml IV Total 1238 ml Output Urine Total 500 ml 250 ml 3275 ml # Bowel Movements 1 2 Exam General: Alert, Cooperative, No Acute Distress Head: Normal Eyes: Scleral Anicteric Nose: Mucous Membr Moist/[place] Mouth: Mucous Membr Moist/[place] Neck: Supple Chest & Lungs: Chest Wall Normal, Expiratory wheezes (mild bilat), Other (no significant crackle) Cardiovascular: Regular Rate/Rhythm Abdomen: Non-tender, Non-distended, Normoactive bowel tones, Soft Extremities: No cyanosis/clubbing/edema bilat Neurological: Grossly Neurologically Intact, Normal Speech IVs and Medications Medications Reviewed: Medications were reviewed in detail Lab and Diagnostics Result Diagram: 07/14/16 0715 07/14/16 0715 X-Rays, CTs and MRIs Date of Service: 07/12/16 3420 PROCEDURE: X-RAY CHEST, TWO VIEWS ([id number]) IMPRESSION: Increased pulmonary vascularity suggestive of edema. Streaky opacities are present in the right base. This could be commercial pest control representative of evolving pneumonia, focal edema and/or atelectasis. Dictated by: Hanna Soares M.D. on 07/12/2016 at 17:59 Approved by: Hanna Soares M.D. on 07/12/2016 at 18:00 Cardiac Echo Impressions Date of Service: 07/13/16 8274 Echocardiogram Report Interpretation Summary The left ventricle is normal in size. Left ventricular systolic function is mildly reduced. The ejection fraction is estimated to be 45-50%. There has been no significant change since the previous study. There is a significant dyssynchronous contraction pattern, consistent with a conduction abnormality. Assessment of diastolic parameters indicates a relaxation abnormality of the left ventricle, consistent with normal filling pressures. The right ventricle is mildly dilated. The right ventricular systolic function is normal. The right ventricular systolic pressure is estimated at least 23 mmHg assuming a right atrial pressure of 3 mm Hg. Right atrial size is normal. There is mild mitral valve prolapse. The mitral regurgitant jet is eccentrically directed. There is mild mitral regurgitation. MR has slightly decreased since prior study. There is mild aortic regurgitation. AR has been stable since prior study. The aortic root is normal size. At least moderate atherosclerosis in the abdominal aorta. Reading Physician:PM Assessment & Plan 86-year-old female with history of Asthma, hypothyroidism, CAD / [place] in her 50s medically managed / hypertension presents with 2-3 days of shortness of breath, productive cough, with wheezing. # Acute respiratory distress and shortness of breath likely combination of acute asthma exacerbation +/- acute mild diastolic heart failure and brought on by acute Influenza B infection. present on admission. improving - afebrile w/o leukocytosis - further management as noted below - titrate off of supplemental O2 # Acute Influenza B, poa. - c/w Tamiflu x 5 days - c/w supportive care # Acute asthma exacerbation, poa. improving - will stop Prednisone after today - c/w neb treatment # Possible acute mild diastolic heart failure - Echocardiogram with EF 45-50% - clinically appears fairly euvolemic - hold further Lasix for now - f/u daily I/O # Acute Hyponatremia, present on admission. - improved with fluid restriction 1.5 L - f/u daily BMP # Chronic hypothyroidism. presumed stable - c/w home dose Synthroid # CAD/CA/hypertension/sCHF-dilated cardiomyopathy per prior reports. stable - c/w home dose Carvedilol - Hold home dose Losartan until BP more stable # Small AAA 3.7 cm X 3.7 cm, unchanged from 2011 to 2013 - further f/u as outpatient Dispo: 1-2 days pending ability to titrate off of O2 and more stable BP VTE Mechanical Devices: Venous Foot Pump Time spent 30 min Steven Rodriguez Jul 15, 2016 14:39
[2016-07-15] MEDS ORDERED: 0.9% Sodium Chloride 1,000 ML IV ONE (14:40)
--- NOTE | 2016-07-15 16:14 | NUR ---
Oxygen Pt felt fatigued and SOB this am, VSS, O2 sats 92% of 2L, pt received NEB treatment and felt better. Throughout the day, per pt "feeling much better, no SOB." Titrated O2 down to 1.5L, this morning, pt sats went down at the lowest to 89% unsustained, remained 90-92% most of the day. Reassessed pt now, O2 92%, titrated down to 0.5L, will monitor closely. Pt has been in bed most of the day, napping on and off, noted decrease in activity. Will continue to monitor.
--- NOTE | 2016-07-15 17:13 | NUR ---
Oxygen Titrated pt off O2, reassessed 1 hr, pt O2 sats 86%, placed 1L to recover, then will titrate back to 1/2L NC. Pt was able to recover with deep breathing exercise back to 91%. Will continue to monitor.
[2016-07-16] VITALS (13 sets, daily range): BP systolic 111–137; BP diastolic 46–69; PULSE 75–94; RESP 20–28; O2SAT 84–94
[2016-07-16] MEDS: Sodium Chloride LOK Flush 10 mL Syringe IVFLUSH SCH ×4 (00:30→23:56)
[2016-07-16] MEDS: Albuterol-Ipratropium 3 mL Inhalation Solution NEB SCH ×4 (02:38→20:04)
--- NOTE | 2016-07-16 07:13 | NUR ---
Nose bleed Pt experienced nose bleed at 0450 this morning. In the time it took to stop nose bleed Pts SpO2 decreased to 85% on RA. Pts SpO2 returned above 90% once O2 was returned to nose.
[2016-07-16] MEDS: Fluticasone-Salmeterol 100-50 Inhaler INHALATION SCH ×2 (08:09→20:28)
--- NOTE | 2016-07-16 17:07 | PCM.PNMED ---
Subjective Date of Service Jul 16, 2016 Subjective denies any new issues/complaints. continues to have cough and some SOB Exam Vital Signs Vital Sign - Last Date Time Temp Pulse Resp B/P Pulse Ox O2 Delivery O2 Flow Rate FiO2 07/16/16 16:39 89 20 94 Nasal Cannula 1.00 07/16/16 13:41 37.4 137/46 Intake and Output 07/15/16 07/15/16 07/16/16 Cumulative From/Thru 15:00 23:00 07:00 07/12/16 15:51 - 07/16/16 06:37 Intake Total 986 ml 200 ml 4924 ml Output Total 350 ml 100 ml 3725 ml Balance 636 ml 100 ml 1199 ml Intake Oral 800 ml 200 ml 3500 ml IV Total 186 ml 1424 ml Output Urine Total 350 ml 100 ml 3725 ml # Voids 2 2 # Bowel Movements 0 1 3 Exam General: Alert, Cooperative, No Acute Distress Head: Normal Eyes: Scleral Anicteric Nose: Mucous Membr Moist/[place] Mouth: Mucous Membr Moist/[place] Neck: Supple Chest & Lungs: Chest Wall Normal, Expiratory wheezes (mild bilat), Other (no significant crackle) Cardiovascular: Regular Rate/Rhythm Abdomen: Non-tender, Non-distended, Normoactive bowel tones, Soft Extremities: No cyanosis/clubbing/edema bilat Neurological: Grossly Neurologically Intact, Normal Speech IVs and Medications Medications Reviewed: Medications were reviewed in detail Lab and Diagnostics Result Diagram: 07/14/16 0715 07/16/16 0540 X-Rays, CTs and MRIs Date of Service: 07/12/16 6648 PROCEDURE: X-RAY CHEST, TWO VIEWS ([id number]) IMPRESSION: Increased pulmonary vascularity suggestive of edema. Streaky opacities are present in the right base. This could be contact center representative of evolving pneumonia, focal edema and/or atelectasis. Dictated by: Hanna Soares M.D. on 07/12/2016 at 17:59 Approved by: Hanna Soares M.D. on 07/12/2016 at 18:00 Cardiac Echo Impressions Date of Service: 07/13/16 1731 Echocardiogram Report Interpretation Summary The left ventricle is normal in size. Left ventricular systolic function is mildly reduced. The ejection fraction is estimated to be 45-50%. There has been no significant change since the previous study. There is a significant dyssynchronous contraction pattern, consistent with a conduction abnormality. Assessment of diastolic parameters indicates a relaxation abnormality of the left ventricle, consistent with normal filling pressures. The right ventricle is mildly dilated. The right ventricular systolic function is normal. The right ventricular systolic pressure is estimated at least 23 mmHg assuming a right atrial pressure of 3 mm Hg. Right atrial size is normal. There is mild mitral valve prolapse. The mitral regurgitant jet is eccentrically directed. There is mild mitral regurgitation. MR has slightly decreased since prior study. There is mild aortic regurgitation. AR has been stable since prior study. The aortic root is normal size. At least moderate atherosclerosis in the abdominal aorta. Reading Physician:PM Assessment & Plan 86-year-old female with history of Asthma, hypothyroidism, CAD / [place] in her 50s medically managed / hypertension presents with 2-3 days of shortness of breath, productive cough, with wheezing. # Acute respiratory distress and shortness of breath likely combination of acute asthma exacerbation +/- acute mild diastolic heart failure and brought on by acute Influenza B infection. present on admission. improving - afebrile w/o leukocytosis - further management as noted below - titrate off of supplemental O2 # Acute Influenza B, poa. - c/w Tamiflu x 5 days - c/w supportive care # Acute asthma exacerbation, poa. improving - stopped Prednisone on 07/16 - c/w neb treatment # Possible acute mild diastolic heart failure - Echocardiogram with EF 45-50% - clinically appears fairly euvolemic - hold further Lasix for now - f/u daily I/O # Acute hypoxic respiratory failure. not initially present on admission but now ongoing - likely 2ndry to above - f/u repeat CXR in am # Acute Hyponatremia, present on admission. ongoing - c/w fluid restriction 1.5 L - f/u daily BMP # Chronic hypothyroidism. presumed stable - c/w home dose Synthroid # CAD/[place]/hypertension/sCHF-dilated cardiomyopathy per prior reports. stable - c/w home dose Carvedilol - Hold home dose Losartan until BP more stable # Small AAA 3.7 cm X 3.7 cm, unchanged from 2011 to 2013 - further f/u as outpatient Dispo: 1-2 days pending ability to titrate off of O2 VTE Mechanical Devices: Intermittant Pneumatic CD Steven Rodriguez Jul 16, 2016 17:07
--- NOTE | 2016-07-16 18:45 | NUR ---
Oxygen titration/Ambulation Pt has been ambulating in room independently on 0.5-1L O2, titrating oxygen last couple of days unable to go below 0.5L O2 without pt desating to 86-88%. Took pt for walk around hallway to monitor saturations, pt started out on 1L NC, turned off O2 approx half way pt desated to 85%, put O2 back on, and 5 mins later pt was up to 93%. Per pt "I feel fine," however pt was fatigued and tripoding on the sofa in the room trying to recover. Will continue to monitor.
[2016-07-17] VITALS (14 sets, daily range): BP systolic 101–130; BP diastolic 53–65; PULSE 75–90; RESP 18–28; O2SAT 90–94
[2016-07-17] MEDS: Albuterol-Ipratropium 3 mL Inhalation Solution NEB SCH ×4 (02:03→19:24)
--- NOTE | 2016-07-17 05:30 | NUR ---
Respiratory Continues to c/o ORTEGA and frequent cough throughout shift. Unable to titrate of O2. Remains on 1L NC with SpO2 low 90's at rest. Currently resting without any complaints.
[2016-07-17 06:08] LABS: BASOPHILS % (AUTO) 0.2 % (0-3); EOSINOPHILS % (AUTO) 0.2 % (0-5); MONOCYTES % (AUTO) 8.3 % (4-12); Mean Corpuscular Hemoglobin 30.3 pg (27.0-35.0); Mean Corpuscular Volume 94.7 fL (81-100); NEUTROPHILS % (AUTO) 76.5 % (40-74); Platelet Count 246 bil/L (150-400)
[2016-07-17] MEDS: Sodium Chloride LOK Flush 10 mL Syringe IVFLUSH SCH ×2 (08:44→18:12)
[2016-07-17] MEDS: Fluticasone-Salmeterol 100-50 Inhaler INHALATION SCH ×2 (08:44→21:23)
--- NOTE | 2016-07-17 10:15 | NUR ---
PATRICIA signed JUANA Ramos
--- NOTE | 2016-07-17 10:21 | DRSVH ---
PROCEDURE: X-RAY CHEST, TWO VIEWS ([id number]) INDICATIONS: 86-year-old female with shortness of breath. TECHNIQUE: 2 views of the chest were acquired. COMPARISON: , CR, XR CHEST 2VW, 07/12/2016, 16:55. , CR, CHEST 1VW (PORTABLE), 09/09/2010, 0:41. , CR, CHEST 1VW (PORTABLE), 07/31/2007, 13:58. FINDINGS: Surgical changes and devices: None. Lungs and pleura: No pleural effusions or pneumothorax. Lungs are clear. Lung volumes are prominen t. Mediastinum: Mediastinal contours are normal. Mild cardiomegaly is unchanged. There is aortic athe rosclerosis. Bones and chest wall: No suspicious bony abnormalities. Soft tissues appear unremarkable. IMPRESSION: 1. Mild cardiomegaly, without acute cardiopulmonary disease. 2. Prominent lung volumes raise the question of chronic obstructive pulmonary disease. Dictated by: Senthil Diaz M.D. on 07/17/2016 at 10:18 Approved by: Senthil Diaz M.D. on 07/17/2016 at 10:20
[2016-07-17] MEDS ORDERED: Furosemide 10 mg/mL 2 mL Inj IVPUSH ONE (11:10)
--- NOTE | 2016-07-17 11:25 | NUR ---
Social Work: Continued d/c planning Data: Pt is on day 5 of hospitalization. EMR reviewed. Pt discussed in rounds. states pt will likely d/c tomorrow pending that her O2 can be tapered. SOFTWARE QUALITY ASSURANCE SPECIALIST met with pt who continues to decline HH. SOFTWARE QUALITY ASSURANCE SPECIALIST will continue to follow. Assessment: Pt who is independent at baseline. Plan: Pt will d/c home via POV when medically stable. SOFTWARE QUALITY ASSURANCE SPECIALIST met with pt who continues to decline HH. SOFTWARE QUALITY ASSURANCE SPECIALIST will continue to follow. JUANA Ramos
[2016-07-17] MEDS: predniSONE 20 mg Tablet PO SCH (12:09)
--- NOTE | 2016-07-17 13:47 | PCM.PNMED ---
Subjective Date of Service Jul 17, 2016 Subjective denies any new issues/complaints. Exam Vital Signs Vital Sign - Last Date Time Temp Pulse Resp B/P Pulse Ox O2 Delivery O2 Flow Rate FiO2 07/17/16 10:01 36.7 81 101/53 94 Nasal Cannula 2.00 07/17/16 08:01 22 Intake and Output 07/16/16 07/16/16 07/17/16 Cumulative From/Thru 15:00 23:00 07:00 07/12/16 15:51 - 07/17/16 06:24 Intake Total 450 ml 5374 ml Output Total 200 ml 3925 ml Balance 250 ml 1449 ml Intake Oral 450 ml 3950 ml IV Total 0 ml 1424 ml Output Urine Total 200 ml 3925 ml # Voids 2 # Bowel Movements 1 4 Exam General: Alert, Cooperative, No Acute Distress Head: Normal Eyes: Scleral Anicteric Nose: Mucous Membr Moist/[place] Mouth: Mucous Membr Moist/[place] Neck: Supple Chest & Lungs: Chest Wall Normal, Expiratory wheezes (mod bilat), Other (no significant crackle) Cardiovascular: Regular Rate/Rhythm Abdomen: Non-tender, Non-distended, Normoactive bowel tones, Soft Extremities: No cyanosis/clubbing. trace bilat LE edema Neurological: Grossly Neurologically Intact, Normal Speech IVs and Medications Medications Reviewed: Medications were reviewed in detail Lab and Diagnostics Result Diagram: 07/17/16 0537 07/17/16 0537 X-Rays, CTs and MRIs Date of Service: 07/12/16 7458 PROCEDURE: X-RAY CHEST, TWO VIEWS ([id number]) IMPRESSION: Increased pulmonary vascularity suggestive of edema. Streaky opacities are present in the right base. This could be volunteer patient representative of evolving pneumonia, focal edema and/or atelectasis. Dictated by: Hanna Soares M.D. on 07/12/2016 at 17:59 Approved by: Hanna Soares M.D. on 07/12/2016 at 18:00 Cardiac Echo Impressions Date of Service: 07/13/16 9511 Echocardiogram Report Interpretation Summary The left ventricle is normal in size. Left ventricular systolic function is mildly reduced. The ejection fraction is estimated to be 45-50%. There has been no significant change since the previous study. There is a significant dyssynchronous contraction pattern, consistent with a conduction abnormality. Assessment of diastolic parameters indicates a relaxation abnormality of the left ventricle, consistent with normal filling pressures. The right ventricle is mildly dilated. The right ventricular systolic function is normal. The right ventricular systolic pressure is estimated at least 23 mmHg assuming a right atrial pressure of 3 mm Hg. Right atrial size is normal. There is mild mitral valve prolapse. The mitral regurgitant jet is eccentrically directed. There is mild mitral regurgitation. MR has slightly decreased since prior study. There is mild aortic regurgitation. AR has been stable since prior study. The aortic root is normal size. At least moderate atherosclerosis in the abdominal aorta. Reading Physician:PM Assessment & Plan 86-year-old female with history of Asthma, hypothyroidism, CAD / [place] in her 50s medically managed / hypertension presents with 2-3 days of shortness of breath, productive cough, with wheezing. # Acute respiratory distress and shortness of breath likely combination of acute asthma exacerbation +/- acute mild diastolic heart failure and brought on by acute Influenza B infection. present on admission. improving - afebrile w/o leukocytosis - further management as noted below - titrate off of supplemental O2 # Acute Influenza B, poa. - post Tamiflu x 5 days - c/w supportive care # Acute asthma exacerbation, poa. clinically seems worse today with increased wheezing - resume Prednisone that was stopped on 07/16 - c/w neb treatment # Possible acute mild diastolic heart failure - Echocardiogram with EF 45-50% - starting to develop some LE edema - IV Lasix x 1 today and f/u - f/u daily I/O # Acute hypoxic respiratory failure. not initially present on admission but now ongoing - likely 2ndry to above - f/u repeat CXR in am # Acute Hyponatremia, present on admission. improving - c/w fluid restriction 1.5 L - f/u daily BMP # Chronic hypothyroidism. presumed stable - c/w home dose Synthroid # CAD/[place]/hypertension/sCHF-dilated cardiomyopathy per prior reports. 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
--- NOTE | 2016-07-17 18:14 | NUR ---
Respiratory/Medication: O2 sats 90-92% 1L oxygen via NC. Attempted to wean from O2. O2 saturation dropped to 87% room air. Replaced oxygen 1L NC and o2 sats recovered to 90-91%. Evening Carvedilol held per BP parameters. BP 109/58.
[2016-07-18] VITALS (17 sets, daily range): BP systolic 118–148; BP diastolic 56–79; PULSE 69–102; RESP 18–24; O2SAT 90–98
[2016-07-18] MEDS: Sodium Chloride LOK Flush 10 mL Syringe IVFLUSH SCH ×3 (00:49→15:27)
[2016-07-18] MEDS: Albuterol-Ipratropium 3 mL Inhalation Solution NEB SCH ×6 (02:38→19:35)
[2016-07-18] MEDS ORDERED: Albuterol 2.5 mg/3 mL Inhalation Solution NEB PRN (03:20)
--- NOTE | 2016-07-18 03:32 | NUR ---
Respiratory Patient has been on 2L, saturations 91%. Patient reported around 0130 that she was feeling short of breath, but thought it was because the oxygen came out of her nose. Assessed saturations (cannula back in nose already), and it was 91%. With 0230 nebulizer, RT reported that patient sounded "crackly". Patient reported that nebulizer helped and she wasn't feeling "too bad". Paged MD with request for OT Lasix and to increase frequency in nebulizer treatments. New orders for Q4 nebs with PRN nebs, no order for Lasix. Patient updated on plan, agreeable. Will pass on to day RN.
[2016-07-18] MEDS: predniSONE 20 mg Tablet PO SCH (09:14)
[2016-07-18] MEDS: Fluticasone-Salmeterol 100-50 Inhaler INHALATION SCH ×2 (09:15→20:38)
--- NOTE | 2016-07-18 10:52 | NUR ---
Telemetry/Respiratory: Notified by groundwater monitoring technician, increasing bigeminal PVCs and HR in 110s. Carvediolol held this am due to BP parameters. Repeat BP 128/57. notified and Carvedilol administered. Patient appeared short of breath. O2 sats 88% 1L o2. Increased oxygen to 2L, O2 sats increased to 91-92%. Will continue to follow. Addendum: 07/18/16 at 1126 by REBA MUKHERJEE RN Follow up w/ groundwater monitoring technician patient now SR PVC pairs, no bigeminal PCV, heart rate decreased to 90s. Addendum: 07/18/16 at 1534 by REBA MUKHERJEE RN O2 reduced to 1L NC, O2 sats maintaining thus far at 94%. Will continue to follow. Per groundwater monitoring technician, ST 103 w/PVCs. States PVCs significantly less than earlier this am.
--- NOTE | 2016-07-18 15:14 | PCM.PNMED ---
Subjective Date of Service Jul 18, 2016 Subjective continues to have SOB and chest tightness Exam Vital Signs Vital Sign - Last Date Time Temp Pulse Resp B/P Pulse Ox O2 Delivery O2 Flow Rate FiO2 07/18/16 14:26 36.3 102 22 125/71 93 Nasal Cannula 2.00 Intake and Output 07/17/16 07/17/16 07/18/16 Cumulative From/Thru 15:00 23:00 07:00 07/12/16 15:51 - 07/18/16 06:37 Intake Total 275 ml 1086 ml 300 ml 7035 ml Output Total 150 ml 750 ml 50 ml 4875 ml Balance 125 ml 336 ml 250 ml 2160 ml Intake Oral 275 ml 1086 ml 300 ml 5611 ml IV Total 1424 ml Output Urine Total 150 ml 750 ml 50 ml 4875 ml # Voids 2 # Bowel Movements 1 5 Exam General: Alert, Cooperative, No Acute Distress Head: Normal Eyes: Scleral Anicteric Nose: Mucous Membr Moist/[place] Mouth: Mucous Membr Moist/[place] Neck: Supple Chest & Lungs: Chest Wall Normal, Expiratory wheezes (mod bilat), lung sounds more coarse and tight compared to yesterday Cardiovascular: Regular Rate/Rhythm Abdomen: Non-tender, Non-distended, Normoactive bowel tones, Soft Extremities: No cyanosis/clubbing. trace bilat LE edema Neurological: Grossly Neurologically Intact, Normal Speech IVs and Medications Medications Reviewed: Medications were reviewed in detail Lab and Diagnostics Result Diagram: 07/17/16 0537 07/18/16 0530 X-Rays, CTs and MRIs Date of Service: 07/12/16 2663 PROCEDURE: X-RAY CHEST, TWO VIEWS ([id number]) IMPRESSION: Increased pulmonary vascularity suggestive of edema. Streaky opacities are present in the right base. This could be auto service representative of evolving pneumonia, focal edema and/or atelectasis. Dictated by: Hanna Soares M.D. on 07/12/2016 at 17:59 Approved by: Hanna Soares M.D. on 07/12/2016 at 18:00 Cardiac Echo Impressions Date of Service: 07/13/16 4740 Echocardiogram Report Interpretation Summary The left ventricle is normal in size. Left ventricular systolic function is mildly reduced. The ejection fraction is estimated to be 45-50%. There has been no significant change since the previous study. There is a significant dyssynchronous contraction pattern, consistent with a conduction abnormality. Assessment of diastolic parameters indicates a relaxation abnormality of the left ventricle, consistent with normal filling pressures. The right ventricle is mildly dilated. The right ventricular systolic function is normal. The right ventricular systolic pressure is estimated at least 23 mmHg assuming a right atrial pressure of 3 mm Hg. Right atrial size is normal. There is mild mitral valve prolapse. The mitral regurgitant jet is eccentrically directed. There is mild mitral regurgitation. MR has slightly decreased since prior study. There is mild aortic regurgitation. AR has been stable since prior study. The aortic root is normal size. At least moderate atherosclerosis in the abdominal aorta. Reading Physician:PM Assessment & Plan 86-year-old female with history of Asthma, hypothyroidism, CAD / [place] in her 50s medically managed / hypertension presents with 2-3 days of shortness of breath, productive cough, with wheezing. # Acute respiratory distress and shortness of breath likely combination of acute asthma exacerbation +/- acute mild diastolic heart failure and brought on by acute Influenza B infection. present on admission. improving - afebrile w/o leukocytosis - further management as noted below - try to titrate off of supplemental O2 # Acute Influenza B, poa. - post Tamiflu x 5 days - c/w supportive care # Acute asthma exacerbation, poa. clinically seems worse today with increased wheezing and coarse breath sound - c/w Prednisone - c/w neb treatment # Acute hypoxic respiratory failure, ongoing - continuing to require supplemental O2 - try to titrate off of supplemental O2 as tolerated # Possible acute on chronic mild diastolic heart failure - Echocardiogram with EF 45-50% - starting to develop some LE edema - will give additional IV Lasix 10mg x 1 today and f/u - f/u daily I/O # Acute hypoxic respiratory failure. not initially present on admission but now ongoing - likely 2ndry to above - f/u repeat CXR in am # Acute Hyponatremia, present on admission. improving - c/w fluid restriction 1.5 L - f/u daily BMP # Chronic hypothyroidism. presumed stable - c/w home dose Synthroid # CAD/[place]/hypertension/sCHF-dilated cardiomyopathy per prior reports. 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
[2016-07-18] MEDS ORDERED: Furosemide 10 mg/mL 2 mL Inj IVPUSH ONE (15:15)
[2016-07-19] VITALS (14 sets, daily range): BP systolic 120–149; BP diastolic 51–76; PULSE 73–91; RESP 16–22; O2SAT 91–94
[2016-07-19] MEDS: Albuterol-Ipratropium 3 mL Inhalation Solution NEB SCH ×6 (00:30→19:54)
[2016-07-19] MEDS: Sodium Chloride LOK Flush 10 mL Syringe IVFLUSH SCH ×3 (01:15→15:24)
[2016-07-19 06:36] LABS: BASOPHILS % (AUTO) 0 % (0-3); EOSINOPHILS % (AUTO) 0.1 % (0-5); MONOCYTES % (AUTO) 11.5 % (4-12); Mean Corpuscular Hemoglobin 30.3 pg (27.0-35.0); Mean Corpuscular Volume 92.9 fL (81-100); NEUTROPHILS % (AUTO) 75.7 % (40-74); Platelet Count 342 bil/L (150-400)
--- NOTE | 2016-07-19 07:05 | NUR ---
Respiration Pt appears mild SOB at bedrest,increase with activities, but stable and tolerate ambulation to BR. Intermittently non productive cough, a lot of crackles at left lower to upper lungs,coarse lung sounds at right lung, no wheezes noted. SPO2 91-93% on O2 1l per nc, NEB administered by RT.
[2016-07-19] MEDS: Fluticasone-Salmeterol 100-50 Inhaler INHALATION SCH ×2 (10:04→21:12)
[2016-07-19] MEDS: predniSONE 20 mg Tablet PO SCH (10:07)
[2016-07-19] MEDS ORDERED: Dextromethorphan Polistirix 6 mg/mL 90 mL Suspension PO PRN (15:05)
[2016-07-19] MEDS: MethylprednisoLONE Sodium Succinate 40 mg/mL Inj IVPUSH SCH ×2 (15:23→21:12)
--- NOTE | 2016-07-19 17:58 | NUR ---
Respiratory: Alerted by SWIMMING COACH OR INSTRUCTOR during routine VS, patient O2 sat 88% on 1L oxygen NC. Patient states she had been having a coughing episode. Appears SOB. Oxygen increased to 2L. O2 sats recovered to 92-93%. RT administered scheduled breathing treatment. Later, upon reassessment, spot check of O2 sat 94-95% on 2L NC. Decreased oxygen to 1L. Several spot checks show that O2 sats are maintaining at 93% on 1L O2 via NC. Tessalon Pearles administered for cough. Patient now resting in bed with eyes closed.
--- NOTE | 2016-07-19 20:08 | PCM.PNMED ---
Subjective Date of Service Jul 19, 2016 Subjective Patient denies chest pain, increased edema, overnight fevers, chills. She says lasix 10 yesterday has helped some but she states she is still not back to her baseline. Continues to be on 2 L of oxygen No other concerns today. Exam Vital Signs Vital Sign - Last Date Time Temp Pulse Resp B/P Pulse Ox O2 Delivery O2 Flow Rate FiO2 07/19/16 01:19 92 Nasal Cannula 1.00 07/19/16 01:00 36.7 79 18 120/51 Intake and Output 07/18/16 07/18/16 07/19/16 Cumulative From/Thru 14:59 22:59 06:59 07/12/16 15:51 - 07/18/16 19:40 Intake Total 700 ml 7735 ml Output Total 700 ml 5575 ml Balance 0 ml 2160 ml Intake Oral 700 ml 6311 ml IV Total 1424 ml Output Urine Total 700 ml 5575 ml # Voids 2 # Bowel Movements 1 6 Exam Eyes: Baird conjunctivae. No ptosis, PERRL NEck: No masses, trachea midline. No thyromegaly Neck: No masses, trachea midline, no thyromegaly Lungs: CTA with normal respiratory effort CV: RRR, no murmurs/rubs/gallops, normal PMI GI: Soft, non-tender with no hepatosplenomegaly MSK: Normal gait and station, no digital cyanosis Skin: Warm and dry. No rash, lesions or ulcers Psych: A&O X3, with approprate affect IVs and Medications Medications Reviewed: Medications were reviewed in detail Lab and Diagnostics Laboratory Tests Test 07/19/16 05:40 White Blood Count 8.6th/mm3 (3.8-10.1) Red Blood Count 3.50mil/mm3 (3.90-5.20) Hemoglobin 10.6g/dL (12.0-15.6) Hematocrit 32.5% (35.0-46.0) Mean Corpuscular Volume 92.9fL (81-100) Mean Corpuscular Hemoglobin 30.3pg (27.0-35.0) Mean Corpuscular Hemoglobin Concent 32.6% (32.0-37.0) Red Cell Distribution Width 13.1% (12.3-15.4) Platelet Count 342bil/L (150-400) Neutrophils (%) (Auto) 75.7% (40-74) Lymphocytes (%) (Auto) 12.3% (14-46) Monocytes (%) (Auto) 11.5% (4-12) Eosinophils (%) (Auto) 0.1% (0-5) Basophils (%) (Auto) 0% (0-3) Sodium Level 130mEq/L (134-144) Potassium Level 4.2mEq/L (3.5-5.2) Chloride Level 92mEq/L (97-108) Carbon Dioxide Level 25mmol/L (18-29) Blood Urea Nitrogen 20mg/dL (8-27) Creatinine 0.67mg/dL (0.57-1.00) Estimat Glomerular Filtration Rate 120mL/min (>59) Glucose Level 109mg/dL (60-99) Calcium Level 8.7mg/dL (8.5-10.1) Magnesium Level 2.0mg/dL (1.6-2.6) Pro-B-Type Natriuretic Peptide 1598pg/mL (0-738) Microbiology 07/12/16 Influenza Screen - Final, Complete 07/12/16 Streptococcus pneumoniae Ag Screen - Final, Complete Result Diagram: 07/17/16 0537 07/18/16 0530 X-Rays, CTs and MRIs Date of Service: 07/12/16 3744 PROCEDURE: X-RAY CHEST, TWO VIEWS ([id number]) IMPRESSION: Increased pulmonary vascularity suggestive of edema. Streaky opacities are present in the right base. This could be motor vehicle representative of evolving pneumonia, focal edema and/or atelectasis. Dictated by: Hanna Soares M.D. on 07/12/2016 at 17:59 Approved by: Hanna Soares M.D. on 07/12/2016 at 18:00 Cardiac Echo Impressions Date of Service: 07/13/16 5014 Echocardiogram Report Interpretation Summary The left ventricle is normal in size. Left ventricular systolic function is mildly reduced. The ejection fraction is estimated to be 45-50%. There has been no significant change since the previous study. There is a significant dyssynchronous contraction pattern, consistent with a conduction abnormality. Assessment of diastolic parameters indicates a relaxation abnormality of the left ventricle, consistent with normal filling pressures. The right ventricle is mildly dilated. The right ventricular systolic function is normal. The right ventricular systolic pressure is estimated at least 23 mmHg assuming a right atrial pressure of 3 mm Hg. Right atrial size is normal. There is mild mitral valve prolapse. The mitral regurgitant jet is eccentrically directed. There is mild mitral regurgitation. MR has slightly decreased since prior study. There is mild aortic regurgitation. AR has been stable since prior study. The aortic root is normal size. At least moderate atherosclerosis in the abdominal aorta. Reading Physician:PM Assessment & Plan 86-year-old female with history of Asthma, hypothyroidism, CAD / [place] in her 50s medically managed / hypertension presents with 2-3 days of shortness of breath, productive cough, with wheezing. She is now shown to have diastolic dysfunction based on echo done on 07/12/16. She has had minor relief of her symptoms with Lasix 10 mg IV yesterday. Continues to have severe wheezing in all lung smith , likely due to COPD exacerbation. # Acute respiratory distress and shortness of breath likely combination of acute asthma/COPD exacerbation +/- acute mild diastolic heart failure and brought on by acute Influenza B infection. present on admission. improving - afebrile w/o leukocytosis - further management as noted below - try to titrate off of supplemental O2 -- There seems to be a COPD compact component to her dyspnea as she does have long-term smoking history though she currently does not smoke. -- Discontinued prednisone by mouth, started on Solu-Medrol 40 mg twice a day -- Continue Advair -- Albuterol and DuoNeb's treatments are ordered -- Delsym and Tessalon Perles for cough COPD/asthma exacerbation, acute on chronic -- There seems to be a COPD compact component to her dyspnea as she does have long-term smoking history though she currently does not smoke. -- Discontinued prednisone by mouth, started on Solu-Medrol 40 mg twice a day -- Continue Advair -- Albuterol and DuoNeb's treatments are ordered -- Delsym and Tessalon Perles for cough # Acute Influenza B, poa. - post Tamiflu x 5 days - c/w supportive care # Acute hypoxic respiratory failure, ongoing - continuing to require supplemental O2 - try to titrate off of supplemental O2 as tolerated # Possible acute on chronic mild diastolic heart failure - Echocardiogram on 07/12 with EF 45-50% - Was given IV Lasix 10mg x 1 ton 07/18/16 - She was given a one-time dose of 20 mg by mouth Lasix today - f/u daily I/O # Acute hypoxic respiratory failure. not initially present on admission but now ongoing - likely 2ndry to above - Symptoms do not improve consider chest x-ray in the a.m. # Acute Hyponatremia, present on admission. improving - c/w fluid restriction 1.5 L - f/u daily BMP # Chronic hypothyroidism. presumed stable - c/w home dose Synthroid # CAD/[place]/hypertension/sCHF-dilated cardiomyopathy per prior reports. 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
[2016-07-20] VITALS (15 sets, daily range): BP systolic 112–148; BP diastolic 54–70; PULSE 71–92; RESP 16–22; O2SAT 88–98
[2016-07-20] MEDS: Albuterol-Ipratropium 3 mL Inhalation Solution NEB SCH ×7 (00:30→23:50)
[2016-07-20] MEDS: Sodium Chloride LOK Flush 10 mL Syringe IVFLUSH SCH ×3 (00:58→18:05)
[2016-07-20 06:22] LABS: BASOPHILS % (AUTO) 0 % (0-3); EOSINOPHILS % (AUTO) 0 % (0-5); MONOCYTES % (AUTO) 3.5 % (4-12); Mean Corpuscular Hemoglobin 30.6 pg (27.0-35.0); Mean Corpuscular Volume 93.4 fL (81-100); NEUTROPHILS % (AUTO) 90.6 % (40-74); Platelet Count 359 bil/L (150-400)
--- NOTE | 2016-07-20 06:26 | NUR ---
O2 Tried titrating pt to RA but is saturating around 88-89%. Pt is still on 1LPM NC of o2 and saturating 92. Still having wheezes and crackles upon auscultation. Pt denies chest pain, telemetry monitoring shows sinus rhythm with IVCD 66. Denies n/v or abd discomfort. VSS and pt has been afebrile overnight.
[2016-07-20] MEDS: Fluticasone-Salmeterol 100-50 Inhaler INHALATION SCH ×2 (08:56→19:40)
[2016-07-20] MEDS: MethylprednisoLONE Sodium Succinate 40 mg/mL Inj IVPUSH SCH ×2 (08:56→19:40)
--- NOTE | 2016-07-20 11:22 | NUR ---
Social Work - Readiness for Discharge Data: EMR reviewed. Pt is on day 8 of hospitalization for CHF exacerbation. Pt is not medically cleared for discharge and per morning rounds will likely discharge tomorrow. Pt is being weaned off 02. SW met with pt at bedside and she continues to decline HH. Pt stated she could use help with preparing meals and SW provided Senior Resources Book with info for senior meal programs. Pt to discharge home via family in POV when medically cleared. SW will continue to follow for needs. Assessment: Pt who is independent at baseline. Plan: Pt will discharge home via POV. Pt continues to decline HH. SW will continue to follow. JUANA [place]
[2016-07-20] MEDS ORDERED: Furosemide 10 mg/mL 2 mL Inj IVPUSH ONE (18:45)
--- NOTE | 2016-07-20 19:48 | NUR ---
O2 Needs Pt sitting in chair for most of dayshift. Denies SOB at rest, occasionally up in room to ambulate. Pt O2 adjusted to maintain goal SpO2 of 92%. 1L -2.5L NC. RT in for neb tx and further analysis. Pt cooperative with care and direction. No SOB episodes during shift.
--- NOTE | 2016-07-20 20:43 | PCM.PNMED ---
Subjective Date of Service Jul 20, 2016 Subjective Patient is seen and examined. She states that she feels much improved today but continues to be on oxygen via nasal cannula. Her echocardiogram on 07/12/16 showed EF of 45-50%, significant dyssynchronous contraction pattern consistent with conduction abnormalities, diastolic relaxation abnormality. She denies chest pain, fevers, chills, nausea, vomiting. Exam Vital Signs Vital Sign - Last Date Time Temp Pulse Resp B/P Pulse Ox O2 Delivery O2 Flow Rate FiO2 07/20/16 19:56 91 148/67 93 Nasal Cannula 2.50 07/20/16 17:10 20 07/20/16 10:06 36.3 Intake and Output 07/19/16 07/19/16 07/20/16 Cumulative From/Thru 15:00 23:00 07:00 07/12/16 15:51 - 07/20/16 06:49 Intake Total 140 ml 7975 ml Output Total 200 ml 6075 ml Balance -60 ml 1900 ml Intake Oral 120 ml 6531 ml IV Total 20 ml 1444 ml Output Urine Total 200 ml 6075 ml # Voids 2 # Bowel Movements 0 7 Exam Gen.: No acute distress sitting up in chair and eating lunch HEENT: Normocephalic, atraumatic Heart: Regular rate and rhythm no S3-S4 murmurs Lungs: Right upper and right lower lobe mild wheezing improved sounds from yesterday At abdomen nondistended Neuro no focal deficit Legs negative edema Neck: Negative for JVD Psychiatric negative for anxiety IVs and Medications IV Fluids None Medications Reviewed: Medications were reviewed in detail Lab and Diagnostics Result Diagram: 07/20/16 0538 07/20/16 0538 X-Rays, CTs and MRIs Date of Service: 07/12/16 4109 PROCEDURE: X-RAY CHEST, TWO VIEWS ([id number]) IMPRESSION: Increased pulmonary vascularity suggestive of edema. Streaky opacities are present in the right base. This could be licensing representative of evolving pneumonia, focal edema and/or atelectasis. Dictated by: Hanna Soares M.D. on 07/12/2016 at 17:59 Approved by: Hanna Soares M.D. on 07/12/2016 at 18:00 Cardiac Echo Impressions Date of Service: 07/13/16 7836 Echocardiogram Report Interpretation Summary The left ventricle is normal in size. Left ventricular systolic function is mildly reduced. The ejection fraction is estimated to be 45-50%. There has been no significant change since the previous study. There is a significant dyssynchronous contraction pattern, consistent with a conduction abnormality. Assessment of diastolic parameters indicates a relaxation abnormality of the left ventricle, consistent with normal filling pressures. The right ventricle is mildly dilated. The right ventricular systolic function is normal. The right ventricular systolic pressure is estimated at least 23 mmHg assuming a right atrial pressure of 3 mm Hg. Right atrial size is normal. There is mild mitral valve prolapse. The mitral regurgitant jet is eccentrically directed. There is mild mitral regurgitation. MR has slightly decreased since prior study. There is mild aortic regurgitation. AR has been stable since prior study. The aortic root is normal size. At least moderate atherosclerosis in the abdominal aorta. Reading Physician:PM Assessment & Plan 86-year-old female with history of Asthma, hypothyroidism, CAD / [place] in her 50s medically managed / hypertension presents with 2-3 days of shortness of breath, productive cough, with wheezing. She is now shown to have diastolic dysfunction based on echo done on 07/12/16. She has had minor relief of her symptoms with Lasix 10 mg IV on 07/18/16. Was given Lasix 20 mg by mouth on 07/19/16. Continues to have severe wheezing in all lung smith, likely due to COPD exacerbation. # Acute respiratory distress and shortness of breath likely combination of acute asthma/COPD exacerbation +/- acute mild diastolic heart failure and brought on by acute Influenza B infection. present on admission. improving - afebrile w/o leukocytosis - further management as noted below - try to titrate off of supplemental O2 -- There seems to be a COPD compact component to her dyspnea as she does have long-term smoking history though she currently does not smoke. -- Discontinued prednisone by mouth, started on Solu-Medrol 40 mg twice a day -- Continue Advair: Patient is requesting this at the time of her discharge -- Albuterol and DuoNeb's treatments are ordered -- Delsym and Tessalon Perles for cough COPD/asthma exacerbation, acute on chronic -- There seems to be a COPD compact component to her dyspnea as she does have long-term smoking history though she currently does not smoke. -- Discontinued prednisone by mouth, started on Solu-Medrol 40 mg twice a day -- Continue Advair -- Albuterol and DuoNeb's treatments are ordered -- Delsym and Tessalon Perles for cough Acute hyperglycemia -- Secondary to steroids -- Continue to monitor # Acute Influenza B, poa. - post Tamiflu x 5 days - c/w supportive care # Acute hypoxic respiratory failure, ongoing - continuing to require supplemental O2 - try to titrate off of supplemental O2 as tolerated # Possible acute on chronic mild diastolic heart failure - Echocardiogram on 07/12 with EF 45-50% - Was given IV Lasix 10mg x 1 ton 07/18/16 - She is being given Lasix gently as needed - f/u daily I/O # Acute hypoxic respiratory failure. not initially present on admission but now ongoing - likely 2ndry to above - Symptoms do not improve consider chest x-ray in the a.m. # Acute Hyponatremia, present on admission. improving - c/w fluid restriction 1.5 L - f/u daily BMP # Chronic hypothyroidism. presumed stable - c/w home dose Synthroid # CAD/[place]/hypertension/sCHF-dilated cardiomyopathy per prior reports. 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
[2016-07-21] VITALS (13 sets, daily range): BP systolic 126–147; BP diastolic 56–80; PULSE 71–90; RESP 18–22; O2SAT 88–95
[2016-07-21] MEDS: Sodium Chloride LOK Flush 10 mL Syringe IVFLUSH SCH ×3 (01:26→16:43)
[2016-07-21] MEDS: Albuterol-Ipratropium 3 mL Inhalation Solution NEB SCH ×5 (04:34→20:45)
--- NOTE | 2016-07-21 06:38 | NUR ---
Respiration/O2 titration Denies SOB at rest, significant SOB with ambulating, cyanosis at lips. Overall improved per pt. Cough intermittently,nonproductive, Tessalon lindsey given. Moderately decreased lung sounds,no wheezes or crackles noted. Tele: SR IVCD, HR 70S-80S, mild pitting edema at bilateral LEs, elevated on pillows. NEB administered by RT. SPO2 91-93 on humidified O2 2.5 per nc at evening,mouth breather, Oxymask used overnight, SPO2 93-95% on O2 1.5-2.5L, pt dislikes Oxymask because "too warm", switch to nc this am per pt requests, SPO2 on 88-90% on O2 1.5-2l per nc this am, increase O2 back to 2.5L, SPO2 91%.
[2016-07-21 06:42] LABS: BASOPHILS % (AUTO) 0.1 % (0-3); EOSINOPHILS % (AUTO) 0 % (0-5); MONOCYTES % (AUTO) 6.3 % (4-12); Mean Corpuscular Hemoglobin 30.3 pg (27.0-35.0); Mean Corpuscular Volume 93.8 fL (81-100); NEUTROPHILS % (AUTO) 88.5 % (40-74); Platelet Count 420 bil/L (150-400)
[2016-07-21] MEDS: Fluticasone-Salmeterol 100-50 Inhaler INHALATION SCH ×2 (08:04→20:27)
[2016-07-21] MEDS: MethylprednisoLONE Sodium Succinate 40 mg/mL Inj IVPUSH SCH ×3 (08:04→20:24)
--- NOTE | 2016-07-21 10:57 | NUR ---
Supplemental Oxygen Patient on 2L supplemental oxygen with saturations at 92%. Patient has been intermittently coughing while producing moderate amounts of thick yellow sputum. Patient has been receiving neb treatment.
[2016-07-21] MEDS ORDERED: Furosemide 10 mg/mL 4 mL Inj IVPUSH ONE (13:15)
--- NOTE | 2016-07-21 15:31 | NUR ---
NUTRITION ASSESSMENT: ASSESS: 86 YO female admitted for CHF exacerbation which is improving. Pt with good po intake since admit. PMHx: Asthma, CHF, cataracts, hypothyroidism, CAD/NE, HTN. LABS: Reviewed. BUN 28, Glu 146, Alb 3.3. MEDS: Reviewed. GI: BM x 1 (07/20) CURRENT WT: 63.0 kg. DIET: Heart Healthy. PO 75-100% of meals. EST. NEEDS: 7671-4144 kcals (25-30 kcals/kg BW), 65-75 g protein (1.0-1.2 g/kg BW NUTRITION DIAGNOSIS: 1.) No nutritional diagnosis at this time. NUTRITION INTERVENTION: 1.) No nutritional intervention at this time. MONITOR / EVAL: PO intake, labs, nutritional status. Follow per low nutritional risk guidelines.
--- NOTE | 2016-07-21 16:13 | NUR ---
Oxygen Patient was decreased to 1L supplemental oxygen by the MD. Respiratory therapy came in to administer a nebulizer treatment and stated patient desaturated to 87% and bumped up oxygen to 2L. Nurse administered Furosemide IV and Methylprednisolone IV and assessed patient 30 minutes later. Supplemental oxygen was at 2L with saturations at 92% and nurse titrated supplemental oxygen down to 1L supplemental oxygen. Saturations at 1L were 90-91%. Will continue to monitor.
--- NOTE | 2016-07-21 20:59 | PCM.PNMED ---
Subjective Date of Service Jul 21, 2016 Subjective Patient is seen and examined. Patient states that she is a lot better than when she came in. She continues to be on 2 L of oxygen. Today I discussed goals of 88-92% and COPD patient instructed of aiming for greater than 92% without oxygen. Patient would like for us to write for Advair instead of the M and she goes home as she feels it is working better for her. Patient lives at home alone with her at long-term and feels that she can go back to her home setting. She denies overnight fevers, chills, shortness of breath. She says her legs are still swollen but they are improving Exam Vital Signs Vital Sign - Last Date Time Temp Pulse Resp B/P Pulse Ox O2 Delivery O2 Flow Rate FiO2 07/21/16 20:46 71 20 90 Nasal Cannula 1.00 07/21/16 19:54 36.5 126/73 Intake and Output 07/20/16 07/20/16 07/21/16 Cumulative From/Thru 15:00 23:00 07:00 07/12/16 15:51 - 07/21/16 06:31 Intake Total 750 ml 100 ml 8825 ml Output Total 1200 ml 500 ml 7775 ml Balance -450 ml -400 ml 1050 ml Intake Oral 750 ml 100 ml 7381 ml IV Total 1444 ml Output Urine Total 1200 ml 500 ml 7775 ml # Voids 2 # Bowel Movements 1 0 8 Exam Gen.: No acute distress HEENT: Normocephalic, atraumatic Heart: Regular rate and rhythm no S3-S4 murmur Lungs: Include wheezing (patient states she wheezes at her baseline) Abdomen soft nondistended Extremities 1+ pitting edema bilaterally Neck: Negative for JVD Psych: Negative for anxiety Neuro no focal deficits IVs and Medications IV Fluids None Medications Reviewed: Medications were reviewed in detail Lab and Diagnostics Result Diagram: 07/21/1661407/21/16614 X-Rays, CTs and MRIs Date of Service: 07/12/16 1558 PROCEDURE: X-RAY CHEST, TWO VIEWS ([id number]) IMPRESSION: Increased pulmonary vascularity suggestive of edema. Streaky opacities are present in the right base. This could be consumer sales representative of evolving pneumonia, focal edema and/or atelectasis. Dictated by: Hanna Soares M.D. on 07/12/2016 at 17:59 Approved by: Hanna Soares M.D. on 07/12/2016 at 18:00 Cardiac Echo Impressions Date of Service: 07/13/16 174 Echocardiogram Report Interpretation Summary The left ventricle is normal in size. Left ventricular systolic function is mildly reduced. The ejection fraction is estimated to be 45-50%. There has been no significant change since the previous study. There is a significant dyssynchronous contraction pattern, consistent with a conduction abnormality. Assessment of diastolic parameters indicates a relaxation abnormality of the left ventricle, consistent with normal filling pressures. The right ventricle is mildly dilated. The right ventricular systolic function is normal. The right ventricular systolic pressure is estimated at least 23 mmHg assuming a right atrial pressure of 3 mm Hg. Right atrial size is normal. There is mild mitral valve prolapse. The mitral regurgitant jet is eccentrically directed. There is mild mitral regurgitation. MR has slightly decreased since prior study. There is mild aortic regurgitation. AR has been stable since prior study. The aortic root is normal size. At least moderate atherosclerosis in the abdominal aorta. Reading Physician:PM Assessment & Plan 86-year-old female with history of Asthma, hypothyroidism, CAD / [place] in her 50s medically managed / hypertension presents with 2-3 days of shortness of breath, productive cough, with wheezing. She is now shown to have diastolic dysfunction based on echo done on 07/12/16. She has had minor relief of her symptoms with Lasix 10 mg IV on 07/18/16. Was given Lasix 20 mg by mouth on 07/19/16. 20 mg of Lasix IV and 07/20/16. Improved wheezing in all lung smith. On 07/21/16 we have given her 40 mg Lasix IV to achieve a goal of 2 L of diuresis per day. # Acute respiratory distress and shortness of breath likely combination of acute asthma/COPD exacerbation +/- acute mild diastolic heart failure and brought on by acute Influenza B infection. present on admission. improving - afebrile w/o leukocytosis - further management as noted below - try to titrate off of supplemental O2: Staff were asked to use only 88-92% as criteria to wean her off oxygen -- There seems to be a COPD compact component to her dyspnea as she does have long-term smoking history though she currently does not smoke. -- Discontinued prednisone by mouth, started on Solu-Medrol 40 mg twice a day -- Continue Advair: Patient is requesting this at the time of her discharge -- Albuterol and DuoNeb's treatments are ordered -- Delsym and Tessalon Perles for cough COPD/asthma exacerbation, acute on chronic -- There seems to be a COPD compact component to her dyspnea as she does have long-term smoking history though she currently does not smoke. -- Discontinued prednisone by mouth, started on Solu-Medrol 40 mg twice a day -- Continue Advair -- Albuterol and DuoNeb's treatments are ordered -- Delsym and Tessalon Perles for cough Acute hyperglycemia -- Secondary to steroids -- Continue to monitor leukocytosis -- Secondary to steroids -- Continue to monitor # Acute Influenza B, poa. - post Tamiflu x 5 days - c/w supportive care # Acute hypoxic respiratory failure, ongoing - continuing to require supplemental O2 - try to titrate off of supplemental O2 as tolerated # Possible acute on chronic mild diastolic heart failure - Echocardiogram on 07/12 with EF 45-50% - Was given IV Lasix 10mg x 1 ton 07/18/16 - She is being given Lasix gently as needed - f/u daily I/O # Acute hypoxic respiratory failure. not initially present on admission but now ongoing - likely 2ndry to above - Symptoms do not improve consider chest x-ray in the a.m. # Acute Hyponatremia, present on admission. -- Resolved - c/w fluid restriction 1.5 L - f/u daily BMP # Chronic hypothyroidism. presumed stable - c/w home dose Synthroid # CAD/ME/hypertension/sCHF-dilated cardiomyopathy per prior reports. stable - c/w home dose Carvedilol - Consider reducing losartan dose tomorrow a.m. # Small AAA 3.7 cm X 3.7 cm, unchanged from 2011 to 2013 - further f/u as outpatient Dispo: 1-2 days pending ability to titrate off of O2 and improved respiratory status. The requirements of keeping her O2 sats between 88-92% for COPD patient are conveyed to the staff VTE Prophylaxis: Sub-Q Enoxaparin VTE Mechanical Devices: Intermittant Pneumatic CD Resuscitation Status: CPR: Attempt Resuscitation Amy Garcia DO Jul 21, 2016 20:59
[2016-07-22] VITALS (8 sets, daily range): BP systolic 121–141; BP diastolic 58–93; PULSE 72–86; RESP 18–20; O2SAT 88–92
[2016-07-22] MEDS: Sodium Chloride LOK Flush 10 mL Syringe IVFLUSH SCH ×2 (00:14→08:22)
[2016-07-22] MEDS: Albuterol-Ipratropium 3 mL Inhalation Solution NEB SCH ×4 (00:30→12:21)
--- NOTE | 2016-07-22 01:11 | NUR ---
O2 Titration sat's 92% on 1L. Reduced to 0.5L O2 @01:12. Will monitor overnight. Addendum: 07/22/16 at 0427 by RODRI VALDES RN sat's 90% on 0.5L, turned O2 off and will check O2 sat again in one hour. Addendum: 07/22/16 at 0526 by RODRI VALDES RN Was 87% lying down on RA but when sitting on side of bed desat to 82%. Could get to 85% with a few coughs and deep breathes but could not get to 88% on RA to 0.5L Placed O2 back to 1L and sat now 88%, hands wage and salary administrator sitting position. Lung sounds coarse and congested will recheck after next Neb trx.
[2016-07-22 06:01] LABS: BASOPHILS % (AUTO) 0.2 % (0-3); EOSINOPHILS % (AUTO) 0.1 % (0-5); MONOCYTES % (AUTO) 5.4 % (4-12); Mean Corpuscular Hemoglobin 29.9 pg (27.0-35.0); Mean Corpuscular Volume 94.7 fL (81-100); NEUTROPHILS % (AUTO) 89.2 % (40-74); Platelet Count 427 bil/L (150-400)
[2016-07-22] MEDS: MethylprednisoLONE Sodium Succinate 40 mg/mL Inj IVPUSH SCH (08:22)
[2016-07-22] MEDS: Fluticasone-Salmeterol 100-50 Inhaler INHALATION SCH (08:23)
[2016-07-22] MEDS ORDERED: predniSONE 20 mg Tablet PO SCH (08:55)
--- NOTE | 2016-07-22 09:04 | PCM.DIMED ---
Discharge Instructions Date of Service Jul 22, 2016 Dates of Hospitalization Jul 12, 2016 at 18:19 Discharge Diagnosis Discharge Diagnosis Influenza B, COPD exacerbation, Diastolic heart failure, Asthma/COPD, HTN, Cardiomyopathy Medication Instructions Please start pravastatin 10 mg at night every day Please take 4 more doses of prednisone. Lasix 20 mg Every other day, Dulera is stopped, advair started Diet Low fat, Low Sodium, Heart Healthy Activity Limited until seen by PCP (Patient needed 1-2L oxygen here to saturate 88-92%) Call your provider Fever or Chills, Shortness of breath, Chest pain, Vomitting, Excessive diarrhea , Weakness (unilateral), Other Patient Instructions Please use the oxygen conor for ambulation. Please take your new meds as prescribed. Please avoid salt in your diet, check your weight regularly. Follow-up plan F/U with Dr. Ashley in 1-2 weeks F/U with PCP in one week Amy Garcia DO Jul 22, 2016 09:04
[2016-07-22] MEDS ORDERED: ALBU18HF INH (09:09)
[2016-07-22] MEDS ORDERED: TIOT18CA3 IH (09:09)
[2016-07-22] MEDS ORDERED: ADV100INH INHALATION (09:09)
[2016-07-22] MEDS ORDERED: PRED-508 PO (09:09)
[2016-07-22] MEDS ORDERED: FUR20 PO (09:11)
--- NOTE | 2016-07-22 09:17 | NUR ---
Social Work: Discharge Data: Pt is on day 10 of hospitalization. EMR reviewed. D/C orders are in. PT recommending home with no PT needs. PREVOCATIONAL/REHABILITATION COUNSELOR offered pt HH for RN multiple times, pt continues to decline. No d/c planning needs at this time. PREVOCATIONAL/REHABILITATION COUNSELOR will continue to follow if needs arise. Assessment: Pt who is independent at baseline. Plan: Pt will d/c home via POV today. No d/c planning needs at this time. PREVOCATIONAL/REHABILITATION COUNSELOR will continue to follow if needs arise. JUANA Ramos
--- NOTE | 2016-07-22 10:21 | NUR ---
1010- Home O2 eval done. Pt. on 1 lpm. Sats 88-89% at rest. Pt. placed on RA. O2 sats decreased to 84%. Pt. placed back on 1 lpm NC. Instructed pt. in purse lipped breathing. O2 sats gradually increased to 88-89% after 5 minutes.
--- NOTE | 2016-07-22 11:35 | NUR ---
Discharge Patient given discharge orders. Patient given informational packets. Patient given hard copies of prescriptions. Patient set up with Home oxygen. Patient given follow up instructions. Patient IV removed fully intact and asymptomatic. Awaiting ride for transportation.
--- NOTE | 2016-07-26 10:46 | PCM.DC.MED ---
Discharge Summary Date of Service Jul 22, 2016 Dates of Hospitalization Date of Hospital Admission Jul 12, 2016 at 18:19 Date of Discharge: Jul 22, 2016 Providers: Admitting Physician: August Bianchi MD Primary Care Physician: Quique Caruso MD Attending Physician: August Bianchi MD Diagnosis at Time of Discharge Diagnosis at Time of Discharge Influenza B, COPD exacerbation, Diastolic heart failure, Asthma/COPD, HTN, Cardiomyopathy Consultations None Procedures XRay, CTs & MRIs Date of Service: 07/12/16 1558 PROCEDURE: X-RAY CHEST, TWO VIEWS ([id number]) IMPRESSION: Increased pulmonary vascularity suggestive of edema. Streaky opacities are present in the right base. This could be patient access representative of evolving pneumonia, focal edema and/or atelectasis. Dictated by: Hanna Soares M.D. on 07/12/2016 at 17:59 Approved by: Hanna Soares M.D. on 07/12/2016 at 18:00 [facility] Diagnostic [place] [address] Patient Name: KOBY GALINDO MR#: [id number] Location: [facility] – [place], [place] Ordering Phys: Steven Rodriguez MD Date of Service: 07/17/16 0600 PROCEDURE: X-RAY CHEST, TWO VIEWS ([id number]) INDICATIONS: 86-year-old female with shortness of breath. TECHNIQUE: 2 views of the chest were acquired. COMPARISON: [facility], CR, XR CHEST 2VW, 07/12/2016, 16:55. [facility], CR, CHEST 1VW (PORTABLE), 09/09/2010, 0:41. [facility], CR, CHEST 1VW (PORTABLE), 07/31/2007, 13:58. FINDINGS: Surgical changes and devices: None. Lungs and pleura: No pleural effusions or pneumothorax. Lungs are clear. Lung volumes are prominent. Mediastinum: Mediastinal contours are normal. Mild cardiomegaly is unchanged. There is aortic atherosclerosis. Bones and chest wall: No suspicious bony abnormalities. Soft tissues appear unremarkable. IMPRESSION: 1. Mild cardiomegaly, without acute cardiopulmonary disease. 2. Prominent lung volumes raise the question of chronic obstructive pulmonary disease. Dictated by: Senthil Diaz M.D. on 07/17/2016 at 10:18 Approved by: Senthil Diaz M.D. on 07/17/2016 at 10:20 Cardiac Echo Impression Date of Service: 07/13/16 1741 Echocardiogram Report Interpretation Summary The left ventricle is normal in size. Left ventricular systolic function is mildly reduced. The ejection fraction is estimated to be 45-50%. There has been no significant change since the previous study. There is a significant dyssynchronous contraction pattern, consistent with a conduction abnormality. Assessment of diastolic parameters indicates a relaxation abnormality of the left ventricle, consistent with normal filling pressures. The right ventricle is mildly dilated. The right ventricular systolic function is normal. The right ventricular systolic pressure is estimated at least 23 mmHg assuming a right atrial pressure of 3 mm Hg. Right atrial size is normal. There is mild mitral valve prolapse. The mitral regurgitant jet is eccentrically directed. There is mild mitral regurgitation. MR has slightly decreased since prior study. There is mild aortic regurgitation. AR has been stable since prior study. The aortic root is normal size. At least moderate atherosclerosis in the abdominal aorta. Reading Physician:PM Brief History cc: Short of breath HISTORY was OBTAINED FROM PATIENT / [employer] NOTES History of present illness 86-year-old female presents with 2-3 days of shortness of breath, productive cough, with wheezing. New onset bilateral lower extremity edema for 1 day. No chest pressure, not immobile, palpitations. poor appetite. drinks at least4+ glasses of tea/coffee daily. home inhalers have not been helpful. no orthopnea. no sore throat. no body aches. She visited family w/ pneumonia who is hospitalized. In the ER vital signs stable on room air, DuoNeb's, normal saline, Lasix, Solu- Medrol Review of Systems - none of the following - F/C/ DIAZ / lightheaded / dizziness / acid reflux / n/v/diarrhea / bleeding/bruising / change in voiding / yeast infections / rash ambulates sneezing fits FAMILY HX CAD ovarian cancer SOCIAL HX quit smoking in her 50s MEDICATIONS Aspirin (Aspirin) 81 Mg Tablet 81 MG PO DAILY Carvedilol (Carvedilol) 25 Mg Tablet 25 MG PO BID Levothyroxine (Levothyroxine) 75 Mcg Tablet 75 MCG PO QAM Losartan Potassium (Losartan Potassium) 50 Mg Tablet 50 MG PO DAILY Mometasone/Formoterol (Dulera 100 Mcg/5 Mcg Inhaler) 13 Gm Hfa.aer.ad 2 PUFFS IH BID Multivits-Min/FA/Lycopene/Lut (Centrum Silver Tablet) 1 Each Tablet 1 EACH PO DAILY Scheduled PRN Fluticasone Propionate (Flonase Allergy Relief) 50 Mcg/Actuation Hellier.susp 1-2 ML NS DAILY PRN PRN RHINITIS Past Medical/Surgical HX Asthma BL cataracts, hypothyroidism CAD / [place] in her 50s medically managed / hypertension / dilated cardiomyopathy, echo 2013 Mildly dilated left ventricle EF45% Apical inferior wall and apical lateral wall are moderate hypokinesis. Mildly dilated right ventricle. Severely dilated left atrium. Mild aortic sclerosis. Mild aortic regurgitation. Mild mitral annular calcification. Moderate mitral regurgitation, eccentrically directed posteriorly. Small aneurysm of the abdominal aorta 3.7 cm X 3.7 cm. Comparison is made with the echocardiogram of 11/15/11, there has been no significant change. 2014 normal Treadmill stress RBBB, performed for dyspnea Hospital Course 86-year-old female with history of Asthma, hypothyroidism, CAD / [place] in her 50s medically managed / hypertension presents with 2-3 days of shortness of breath, productive cough, with wheezing. She is now shown to have diastolic dysfunction based on echo done on 07/12/16. She has had minor relief of her symptoms with Lasix 10 mg IV on 07/18/16. Was given Lasix 20 mg by mouth on 07/19/16. 20 mg of Lasix IV and 07/20/16. Improved wheezing in all lung smith. On 07/21/16 we have given her 40 mg Lasix IV to achieve a goal of 2 L of diuresis per day. # Acute respiratory distress and shortness of breath likely combination of acute asthma/COPD exacerbation +/- acute mild diastolic heart failure and brought on by acute Influenza B infection. present on admission. improving - afebrile w/o leukocytosis - further management as noted below - try to titrate off of supplemental O2: Staff were asked to use only 88-92% as criteria to wean her off oxygen -- There seems to be a COPD compact component to her dyspnea as she does have long-term smoking history though she currently does not smoke. -- Solu-medrol and prednisone were given for pneumonitis related to influenza. -- Continue Advair: Patient is requesting this at the time of her discharge -- Albuterol and DuoNeb's treatments are ordered -- Delsym and Tessalon Perles for cough -- On the day of discharge patient is comfortably breathing with the help of 1- 2L oxygen. COPD/asthma exacerbation, acute on chronic -- There seems to be a COPD compact component to her dyspnea as she does have long-term smoking history though she currently does not smoke. -- Discontinued prednisone by mouth, started on Solu-Medrol 40 mg twice a day -- Continue Advair -- Albuterol and DuoNeb's treatments are ordered -- Delsym and Tessalon Perles for cough --- Solu-medrol and prednisone were given for pneumonitis related to influenza. Acute hyperglycemia -- Secondary to steroids -- Continue to monitor leukocytosis -- Secondary to steroids -- Continue to monitor # Acute Influenza B, poa. - post Tamiflu x 5 days - c/w supportive care as above # Acute hypoxic respiratory failure, ongoing - continuing to require supplemental O2 - try to titrate off of supplemental O2 as tolerated # Possible acute on chronic mild diastolic heart failure - Echocardiogram on 07/12 with EF 45-50% - Was given IV Lasix 10mg x 1 ton 07/18/16 - She is being given Lasix gently as needed - f/u daily I/O # Acute hypoxic respiratory failure. not initially present on admission but now ongoing - likely 2ndry to above. - CXR on 07/17/16 showed COPD ad mild cardiomegaly # Acute Hyponatremia, present on admission. -- Resolved - c/w fluid restriction 1.5 L - f/u daily BMP # Chronic hypothyroidism. presumed stable - c/w home dose Synthroid # CAD/TX/hypertension/sCHF-dilated cardiomyopathy per prior reports. stable - c/w home dose Carvedilol - c/w losartan # Small AAA 3.7 cm X 3.7 cm, unchanged from 2011 to 2013 - further f/u and monitoring as outpatient by the PCP is recommended. Exam Vital Signs (Last) Date Time Temp Pulse Resp B/P Pulse Ox O2 Delivery O2 Flow Rate FiO2 07/22/16 08:30 Supplement Oxygen 07/22/16 07:30 86 20 89 1.00 07/22/16 04:59 36.7 141/93 Exam Gen.: No acute distress HEENT: Normocephalic, atraumatic Heart: Regular rate and rhythm no S3-S4 murmur Lungs:Wheezing much improved, no crackles Abdomen soft nondistended Extremities 1+ pitting edema bilaterally Neck: Negative for JVD Psych: Negative for anxiety Neuro no focal deficits Test 07/12/16 16:15 07/12/16 18:46 07/12/16 20:07 07/12/16 20:49 Total Bilirubin 0.4mg/dL (0.0-1.2) Aspartate Amino Transf (AST/SGOT) 30U/L (0-50) Alanine Aminotransferase (ALT/SGPT) 14U/L (0-32) Alkaline Phosphatase 62U/L (25-165) Total Protein 8.0g/dL (6.4-8.4) Urine Color Yellow (YELLOW) Urine Appearance Clear (CLEAR,HAZY) Urine pH 5.5 (5.0-8.0) Urine Specific [place] 1.015 (1.003-1.035) Urine Protein Negativemg/dL (NEG,TRACE) Urine Glucose (UA) Negativemg/dL (NEGATIVE) Urine Ketones Negativemg/dL (NEGATIVE) Urine Occult Blood Trace (NEGATIVE) Urine Nitrite Negative (NEGATIVE) Urine Bilirubin Negative (NEGATIVE) Urine Urobilinogen Normalmg/dL (NORMAL) Urine Leukocyte Esterase Negative (NEGATIVE) Urine RBC 0-2/hpf (0-2) Urine WBC 0-5/hpf (0-5) Urine Epithelial Cells Occasional/hpf (NONE-MOD) Urine Crystals None seen (NONE SEEN) Urine Bacteria None/hpf (NONE-FEW) Urine Hyaline Casts None/lpf (NONE) Urine Granular Casts None seen (NONE SEEN) Urine Waxy Casts None seen (NONE SEEN) Urine Red Blood Cell Casts None seen (NONE SEEN) Urine White Blood Cell Casts None seen (NONE SEEN) Urine Mucus None seen (None Seen) Urine Trichomonas None seen (NONE SEEN) Urine Yeast None (NONE SEEN) Urinalysis Comment None Urine Culture Reflexed Not indicated Prothrombin Time 10.5sec (8.1-12.5) Prothromb Time International Ratio 0.98ratio Activated Partial Thromboplast Time 32.2sec (22.8-33.0) Free Thyroxine Index 2.5 (1.2-4.9) Thyroxine (T4) 8.1ug/dL (4.5-12.0) Triiodothyronine (T3) Uptake 31% (24-39) Hold Urine Received (Received) Test 07/13/16 06:25 07/19/16 05:40 07/22/16 05:39 Phosphorus Level 4.8mg/dL (2.5-4.9) Troponin T < 0.010ug/L (0.0-0.011) Albumin 3.3g/dL (3.4-5.0) Triglycerides Level 58mg/dL (0-149) Cholesterol Level 155mg/dL (100-199) LDL Cholesterol, Calculated 88.400mg/dL (0-99) VLDL Cholesterol 11.600mg/dL HDL Cholesterol 55mg/dL (>39) Cholesterol/HDL Ratio 2.82 (0.0-4.4) Magnesium Level 2.0mg/dL (1.6-2.6) Pro-B-Type Natriuretic Peptide 1598pg/mL (0-738) White Blood Count 12.8th/mm3 (3.8-10.1) Red Blood Count 3.94mil/mm3 (3.90-5.20) Hemoglobin 11.8g/dL (12.0-15.6) Hematocrit 37.3% (35.0-46.0) Mean Corpuscular Volume 94.7fL (81-100) Mean Corpuscular Hemoglobin 29.9pg (27.0-35.0) Mean Corpuscular Hemoglobin Concent 31.6% (32.0-37.0) Red Cell Distribution Width 13.4% (12.3-15.4) Platelet Count 427bil/L (150-400) Neutrophils (%) (Auto) 89.2% (40-74) Lymphocytes (%) (Auto) 4.9% (14-46) Monocytes (%) (Auto) 5.4% (4-12) Eosinophils (%) (Auto) 0.1% (0-5) Basophils (%) (Auto) 0.2% (0-3) Sodium Level 139mEq/L (134-144) Potassium Level 4.5mEq/L (3.5-5.2) Chloride Level 97mEq/L (97-108) Carbon Dioxide Level 28mmol/L (18-29) Blood Urea Nitrogen 35mg/dL (8-27) Creatinine 0.77mg/dL (0.57-1.00) Estimat Glomerular Filtration Rate 102mL/min (>59) Glucose Level 140mg/dL (60-99) Calcium Level 9.1mg/dL (8.5-10.1) Discharge Medications Discharge Medications Aspirin (Aspirin) 81 Mg Tablet 81 MG PO DAILY (Reported) Carvedilol (Carvedilol) 25 Mg Tablet 25 MG PO BID (Reported) Fluticasone/Salmeterol (Advair 100-50 Diskus) 60 Puffs/Inh Disk 1 PUFF INHALATION BID Prescribed by: AMY BRISCOE DO Furosemide (Furosemide) 20 Mg Tab 20 MG PO Q48H Prescribed by: AMY BRISCOE DO Levothyroxine (Levothyroxine) 75 Mcg Tablet 75 MCG PO QAM (Reported) Losartan Potassium (Losartan Potassium) 50 Mg Tablet 50 MG PO DAILY (Reported) Multivits-Min/FA/Lycopene/Lut (Centrum Silver Tablet) 1 Each Tablet 1 EACH PO DAILY (Reported) Prednisone (Deltasone) 20 Mg Tablet 40 MG PO DAILY Prescribed by: AMY BRISCOE DO Tiotropium [place] (Spiriva) 18 Mcg Cap.w.dev 18 MCG IH DAILY Prescribed by: AMY BRISCOE DO As needed Albuterol Sulfate (Ventolin HFA Inhaler) 200 Puff/18 Gm Inhaler 1 PUFF INH Q4 PRN PRN For Wheezing Prescribed by: AMY BRISCOE DO Fluticasone Propionate (Flonase Allergy Relief) 50 Mcg/Actuation Hellier.susp 1-2 ML NS DAILY PRN PRN RHINITIS (Reported) Additional med instructions Please start pravastatin 10 mg at night every day Please take 4 more doses of prednisone. Lasix 20 mg Every other day, Dulera is stopped, advair started Followup Plan Follow-up plan F/U with Dr. Ashley in 1-2 weeks F/U with PCP in one week Discharge Diet: Low fat, Low Sodium, Heart Healthy Discharge Activity: Limited until seen by PCP (Patient needed 1-2L oxygen here to saturate 88-92%) Patient Instructions Please use the oxygen conor for ambulation. Please take your new meds as prescribed. Please avoid salt in your diet, check your weight regularly. Amy Briscoe DO Jul 22, 2016 09:11
== END 2016-07-22 13:40 | disposition home or self-care (01) | DRG 189 ==
LOC: SED 15:42 → MPC 18:19
PROVIDERS: ADMIT Urology; ATTEND Urology
DX: J96.01 Acute respiratory failure with hypoxia (principal); I50.33 Acute on chronic diastolic (congestive) heart failure; J44.1 Chronic obstructive pulmonary disease with (acute) exacerbation; J45.901 Unspecified asthma with (acute) exacerbation; E87.1 Hypo-osmolality and hyponatremia; I42.8 Other cardiomyopathies; J10.1 Influenza due to other identified influenza virus with other respiratory manifestations; E03.9 Hypothyroidism, unspecified; I10 Essential (primary) hypertension